=== PATIENT | male | born 1960 | race Hispanic/Latino ===

== ENCOUNTER 2021-08-04 14:34 | Inpatient (IN) | payer MEDICARE ==
[2021-08-04] VITALS (8 sets, daily range): BP systolic 152–181; BP diastolic 93–101
[~2021-08-04] VITALS: Ht 170.2 cm; Wt 86.2 kg
[~2021-08-04 14:34] MED LIST: ALBUTEROL0.63 MG/3 INH; BUMETANIDE1 MG PO; CLONIDINE HCL0.1 MG PO; ETOMIDATE 2 MG/ML 10 ML INJ IV ONE; HYDROCODON-ACE1 EAC9 PO; POTASSIUM CHLO10 ME1 PO
[2021-08-04] MEDS ORDERED: NITROGLYCERIN/D5W 200 MCG/ML 250 ML ONE (14:53)
[2021-08-04 15:02] LABS: BASOPHILS % 0.3 % (0.0-1.0); EOSINOPHILS % 0.2 % (0.0-6.0); HEMATOCRIT 28.8 % (38.2-49.6); HEMOGLOBIN 7.9 g/dL (14.0-18.0); LYMPHOCYTES # (AUTO) 1.4 (1.0-3.2); LYMPHOCYTES % 10.4 % (18.0-39.1); MEAN CORPUSCULAR HEMOGLOBIN 27.1 pg (28-32); MEAN CORPUSCULAR HGB CONC 27.4 g/dL (31-35); MEAN CORPUSCULAR VOLUME 98.6 fL (81-99); MONOCYTES # (AUTO) 0.6 (0.2-0.8); MONOCYTES % 4.5 % (4.4-11.3); NEUTROPHILS # (AUTO) 10.9 (2.1-6.9); NEUTROPHILS % 83.8 % (38.7-80.0); PLATELET COUNT 496 x10e3/uL (140-360); RED BLOOD COUNT 2.92 x10e6/uL (4.3-5.7); RED CELL DISTRIBUTION WIDTH 15.4 % (11.7-14.4)
[2021-08-04 15:16] LABS: ALBUMIN 1.9 g/dL (3.5-5.0); ALBUMIN/GLOBULIN RATIO 0.6 (0.8-2.0); ANION GAP 21.8 mmol/L (8-16); CREATININE, SERUM 8.57 mg/dL (0.72-1.25); POTASSIUM 5.8 mmol/L (3.5-5.1)
[2021-08-04] MEDS ORDERED: ALBUTEROL SULF 0.083% NEB SOLN 3 ML NEB NEB STA (15:20)
[2021-08-04 15:21] LABS: CALCIUM 6.6 mg/dL (8.4-10.2); CREATINE KINASE MB 58.1 ng/mL (0-5.0)
[2021-08-04] MEDS ORDERED: FUROSEMIDE INJ 10 MG/ML 4 ML VIAL IV ONE (15:30)
[2021-08-04 15:31] LABS: ABG PCO2 89 mmHg (35-45); ABG PH 6.98 (7.35-7.45)
[2021-08-04 15:31] LABS: MAGNESIUM 2.4 MG/DL (1.3-2.1)
[2021-08-04 15:32] LABS: ABG HCO3 21 mmol/L (22-26); ABG PO2 460 mmHg (80-105); ABG TCO2 24
[2021-08-04 15:37] LABS: INR 0.98; PROTHROMBIN TIME 13.7 seconds (11.9-14.5)
[2021-08-04 15:38] LABS: PARTIAL THROMBOPLASTIN TIME 24.5 seconds (23.8-35.5)
[2021-08-04] MEDS: PROPOFOL IV EMULSION 10MG/ML 100 ML IV SCH ×2 (15:40→21:48)
[2021-08-04] MEDS ORDERED: ROCURONIUM BROMIDE 2 ML IV ONE (15:44)
[2021-08-04] MEDS ORDERED: PROPOFOL IV EMULSION 50 ML IV ONE ×2 (15:49→18:40)
[2021-08-04] MEDS ORDERED: CALCIUM GLUCONATE 10% INJ 13.95 MEQ in SODIUM CHLORIDE 0.9% 100 ML 100 ML IV ONE (16:00)
[2021-08-04] MEDS ORDERED: ETOMIDATE 2 MG/ML 10 ML INJ IV STA (16:06)
[2021-08-04 16:08] LABS: ABG PH 6.99 (7.35-7.45)
[2021-08-04 16:09] LABS: ABG HCO3 20 mmol/L (22-26); ABG PCO2 83 mmHg (35-45); ABG PO2 105 mmHg (80-105); ABG TCO2 23
[2021-08-04] MEDS ORDERED: NITROGLYCERIN/D5W 200 MCG/ML 250 ML IV SCH (16:15)
[2021-08-04] MEDS ORDERED: PROPOFOL IV EMULSION 10MG/ML 100 ML IV SCH (16:15)
[2021-08-04] MEDS ORDERED: ROCURONIUM BROMIDE 10 MG/ML 5ML VIAL IV ONE (16:15)
[2021-08-04] MEDS ORDERED: NICARDIPINE 20MG/200ML PREMIX 200 ML IV SCH (16:45)
[2021-08-04] MEDS ORDERED: LABETALOL HCL 5 MG/ML 20ML VIAL IV PRN (16:45)
[2021-08-04 17:08] LABS: CLARITY,URINE SL CLOUDY (CLEAR); COLOR,URINE YELLOW (YELLOW); LEUKOCYTE ESTERASE ,URINE NEGATIVE (NEGATIVE); NITRITE,URINE NEGATIVE (NEGATIVE)
[2021-08-04 17:09] LABS: KETONES,URINE NEGATIVE (NEGATIVE); PROTEIN,URINE DIPSTICK >=300 (NEGATIVE); URINE UROBILINOGEN 0.2 mg/dL (0.2 - 1)
[2021-08-04 17:15] LABS: MUCUS,URINE FEW (RARE)
[2021-08-04] MEDS ORDERED: SODIUM CHLORIDE 0.9% 1000ML 1,000 ML ONE (17:21)
[2021-08-04] MEDS ORDERED: SODIUM CHLORIDE 0.9% 1000ML 2,000 ML IV PRN (17:45)
[2021-08-04] MEDS ORDERED: HEPARIN SOD (PORCINE) 1000 UNIT/ML SDV IV PRN (17:45)
[2021-08-04] MEDS ORDERED: MANNITOL 25% 12.5GM/50 ML VIAL IV PRN (17:45)
[2021-08-04 17:57] LABS: ABG HCO3 18 mmol/L (22-26); ABG PCO2 45 mmHg (35-45); ABG PO2 283 mmHg (80-105); ABG TCO2 19
[2021-08-04] MEDS ORDERED: SODIUM BICARBONATE 8.4% INJ 50 ML SYR IV STA (17:59)
[2021-08-04] MEDS ORDERED: SODIUM BICARBONATE 8.4% SYRING 50 ML ONE (18:17)
[2021-08-04] MEDS: NICARDIPINE 20MG/200ML PREMIX 200 ML IV PRN (22:53)
[2021-08-04] MEDS: ACETAMINOPHEN 325 MG TAB PO PRN (22:54)
[2021-08-05] VITALS (13 sets, daily range): BP systolic 136–159; BP diastolic 72–80
[2021-08-05 00:22] LABS: ABG HCO3 22 mmol/L (22-26); ABG PCO2 38 mmHg (35-45); ABG PH 7.38 (7.35-7.45); ABG PO2 114 mmHg (80-105); ABG TCO2 24
[2021-08-05] MEDS: NICARDIPINE 20MG/200ML PREMIX 200 ML IV PRN ×4 (01:02→10:29)
[2021-08-05] MEDS: PROPOFOL IV EMULSION 10MG/ML 100 ML IV SCH ×6 (03:02→15:35)
[2021-08-05 04:36] LABS: BASOPHILS % 0.3 % (0.0-1.0); EOSINOPHILS # (AUTO) 0.1 (0.0-0.4); EOSINOPHILS % 0.9 % (0.0-6.0); HEMATOCRIT 26.3 % (38.2-49.6); HEMOGLOBIN 7.8 g/dL (14.0-18.0); LYMPHOCYTES # (AUTO) 1.6 (1.0-3.2); LYMPHOCYTES % 13.5 % (18.0-39.1); MEAN CORPUSCULAR HEMOGLOBIN 27.4 pg (28-32); MEAN CORPUSCULAR HGB CONC 29.7 g/dL (31-35); MONOCYTES % 7.9 % (4.4-11.3); NEUTROPHILS # (AUTO) 9.2 (2.1-6.9); NEUTROPHILS % 77.1 % (38.7-80.0); PLATELET COUNT 360 x10e3/uL (140-360); RED BLOOD COUNT 2.85 x10e6/uL (4.3-5.7); RED CELL DISTRIBUTION WIDTH 15.1 % (11.7-14.4)
[2021-08-05 04:45] LABS: ANION GAP 20.9 mmol/L (8-16); CALCIUM 7.5 mg/dL (8.4-10.2); CREATININE, SERUM 6.9 mg/dL (0.72-1.25)
[2021-08-05 04:54] LABS: POTASSIUM 3.9 mmol/L (3.5-5.1)
[2021-08-05 04:55] LABS: MEAN CORPUSCULAR VOLUME 92.3 fL (81-99)
[2021-08-05 06:40] LABS: CREATINE KINASE MB 31.2 ng/mL (0-5.0)
[2021-08-05] MEDS ORDERED: PROPOFOL IV EMULSION 100 ML IV ONE ×2 (13:34→16:18)
[2021-08-05] MEDS: ASPIRIN 81 MG CHEW TAB PO SCH ×2 (14:15→17:37)
[2021-08-05] MEDS: CARVEDILOL 12.5 MG TAB PO SCH ×3 (14:59→17:38)
[2021-08-05] MEDS: HYDRALAZINE HCL 25 MG TAB PO SCH ×2 (15:00→21:00)
[2021-08-05] MEDS ORDERED: PROPOFOL IV EMULSION 100 ML IV SCH (16:15)
[2021-08-05 19:01] LABS: ABG HCO3 24 mmol/L (22-26); ABG PCO2 37 mmHg (35-45); ABG PH 7.42 (7.35-7.45); ABG PO2 88 mmHg (80-105); ABG TCO2 25
[2021-08-05 21:02] LABS: CREATINE KINASE MB 19.9 ng/mL (0-5.0)
[2021-08-05] MEDS ORDERED: HYDRALAZINE HCL 20 MG/ML VIAL IV PRN (21:45)
[2021-08-05] MEDS: HYDRALAZINE HCL 20 MG/ML VIAL IV PRN (22:27)
[2021-08-06] VITALS (10 sets, daily range): BP systolic 116–172; BP diastolic 67–89
[2021-08-06] MEDS ORDERED: CETIRIZINE HCL10 MG PO (00:03)
[2021-08-06] MEDS ORDERED: VENTOLIN HFA18 GM INH (00:03)
[2021-08-06] MEDS ORDERED: FLOMAX0.4 MG PO (00:03)
[2021-08-06] MEDS: ACETAMINOPHEN 325 MG TAB PO PRN ×2 (03:06→19:41)
[2021-08-06 07:17] LABS: BASOPHILS # (AUTO) 0.1 (0.0-0.1); BASOPHILS % 0.4 % (0.0-1.0); EOSINOPHILS % 0.2 % (0.0-6.0); HEMOGLOBIN 7.3 g/dL (14.0-18.0); LYMPHOCYTES # (AUTO) 0.6 (1.0-3.2); LYMPHOCYTES % 3.7 % (18.0-39.1); MEAN CORPUSCULAR HEMOGLOBIN 27.8 pg (28-32); MEAN CORPUSCULAR HGB CONC 30.4 g/dL (31-35); MEAN CORPUSCULAR VOLUME 91.3 fL (81-99); MONOCYTES # (AUTO) 1.1 (0.2-0.8); MONOCYTES % 6.9 % (4.4-11.3); NEUTROPHILS # (AUTO) 14.5 (2.1-6.9); NEUTROPHILS % 88.3 % (38.7-80.0); PLATELET COUNT 304 x10e3/uL (140-360); RED BLOOD COUNT 2.63 x10e6/uL (4.3-5.7); RED CELL DISTRIBUTION WIDTH 14.8 % (11.7-14.4)
[2021-08-06 07:31] LABS: CHOL/HDL RATIO 4.5 (3.9-4.7)
[2021-08-06 07:36] LABS: ALBUMIN 1.6 g/dL (3.5-5.0); ALBUMIN/GLOBULIN RATIO 0.5 (0.8-2.0); CREATININE, SERUM 5.69 mg/dL (0.72-1.25)
[2021-08-06 07:40] LABS: CALCIUM 6.8 mg/dL (8.4-10.2)
[2021-08-06] MEDS: ALBUTEROL SULF 0.083% NEB SOLN 3 ML NEB NEB PRN ×3 (08:29→18:45)
[2021-08-06] MEDS: ASPIRIN 81 MG CHEW TAB PO SCH (09:35)
[2021-08-06] MEDS: HYDRALAZINE HCL 25 MG TAB PO SCH ×3 (09:35→20:29)
[2021-08-06] MEDS: ATORVASTATIN 20 MG TAB PO SCH (09:36)
[2021-08-06] MEDS: CARVEDILOL 12.5 MG TAB PO SCH ×2 (09:59→16:22)
[2021-08-06] MEDS ORDERED: CALCIUM GLUCONATE 10% INJ 9.3 MEQ in SODIUM CHLORIDE 0.9% 100 ML 100 ML IV ONE (12:00)
[2021-08-06] MEDS: ALBUTEROL SULFATE HFA 8GM INHALATION AEROSOL INH PRN ×3 (12:10→16:00)
[2021-08-06] MEDS: LORAZEPAM INJ 2 MG/ML VIAL IV PRN (14:10)
[2021-08-06] MEDS: SODIUM FERRIC GLUCONATE COMPLX 125 MG in SODIUM CHLORIDE 0.9% 100 ML 100 ML IV SCH (14:30)
[2021-08-06] MEDS: GUAIFENESIN/CODEINE 5 ML LIQD PO PRN (20:29)
[2021-08-06] MEDS: HYDRALAZINE HCL 20 MG/ML VIAL IV PRN (23:13)
[2021-08-06] MEDS: MAGNESIUM HYDROXIDE 30 ML UDC PO PRN (23:59)
[2021-08-07 00:01] VITALS: BP 135/78
[2021-08-07] MEDS: ALBUTEROL SULFATE HFA 8GM INHALATION AEROSOL INH PRN (00:30)
[2021-08-07] MEDS: ALBUTEROL SULF 0.083% NEB SOLN 3 ML NEB NEB PRN ×5 (03:10→22:30)
[2021-08-07 04:06] VITALS: BP 154/100
[2021-08-07] MEDS: HYDRALAZINE HCL 20 MG/ML VIAL IV PRN (05:13)
[2021-08-07 06:00] LABS: BASOPHILS # (AUTO) 0.1 (0.0-0.1); BASOPHILS % 0.3 % (0.0-1.0); EOSINOPHILS # (AUTO) 0.1 (0.0-0.4); EOSINOPHILS % 0.3 % (0.0-6.0); HEMATOCRIT 24.4 % (38.2-49.6); HEMOGLOBIN 7.4 g/dL (14.0-18.0); LYMPHOCYTES # (AUTO) 0.8 (1.0-3.2); LYMPHOCYTES % 5.3 % (18.0-39.1); MEAN CORPUSCULAR HEMOGLOBIN 27.6 pg (28-32); MEAN CORPUSCULAR HGB CONC 30.3 g/dL (31-35); MONOCYTES # (AUTO) 1.3 (0.2-0.8); MONOCYTES % 8.6 % (4.4-11.3); NEUTROPHILS # (AUTO) 12.9 (2.1-6.9); NEUTROPHILS % 84.9 % (38.7-80.0); PLATELET COUNT 312 x10e3/uL (140-360); RED BLOOD COUNT 2.68 x10e6/uL (4.3-5.7); RED CELL DISTRIBUTION WIDTH 14.6 % (11.7-14.4)
[2021-08-07 06:43] LABS: ALBUMIN 1.5 g/dL (3.5-5.0); ALBUMIN/GLOBULIN RATIO 0.5 (0.8-2.0); ANION GAP 18.2 mmol/L (8-16); CALCIUM 7.3 mg/dL (8.4-10.2); CREATININE, SERUM 6.24 mg/dL (0.72-1.25); POTASSIUM 4.2 mmol/L (3.5-5.1)
[2021-08-07 07:00] VITALS: BP 118/70
[2021-08-07] MEDS: HYDRALAZINE HCL 25 MG TAB PO SCH ×3 (07:33→21:09)
[2021-08-07 07:44] VITALS: BP 118/70
[2021-08-07] MEDS ORDERED: VERAPAMIL HCL 2.5 MG/ML 2 ML VIAL ONE (08:07)
[2021-08-07] MEDS ORDERED: HEPARIN SOD (PORCINE) 1000 UNIT/ML 30ML ONE (08:07)
[2021-08-07] MEDS ORDERED: SODIUM CHLORIDE 0.9% 1000ML 1,000 ML ONE (08:08)
[2021-08-07] MEDS ORDERED: HEPARIN SOD/SOD CHLORIDE 2,000 ML ONE (08:08)
[2021-08-07] MEDS ORDERED: LIDOCAINE HCL 2% LOCAL 20 ML VIAL ONE (08:08)
[2021-08-07] MEDS ORDERED: FENTANYL CITRATE/PF 100MCG/2 ML INJ ONE (08:08)
[2021-08-07] MEDS ORDERED: MIDAZOLAM HCL 2 MG/2 ML VIAL ONE (08:08)
[2021-08-07] MEDS ORDERED: NITROGLYCERIN/D5W 200 MCG/ML 250 ML ONE (08:08)
[2021-08-07] MEDS ORDERED: IOPAMIDOL 370 MG/ML 200 ML INFUS..BTL INJ ONE (08:08)
[2021-08-07] MEDS ORDERED: CLOPIDOGREL BISULFATE 75 MG TAB ONE (08:50)
[2021-08-07] MEDS ORDERED: ASPIRIN 325 MG TAB ONE (08:51)
[2021-08-07] MEDS: ATORVASTATIN 20 MG TAB PO SCH (09:00)
[2021-08-07] MEDS: CARVEDILOL 12.5 MG TAB PO SCH ×2 (09:00→17:46)
[2021-08-07] MEDS: SODIUM FERRIC GLUCONATE COMPLX 125 MG in SODIUM CHLORIDE 0.9% 100 ML 100 ML IV SCH (09:43)
[2021-08-07] MEDS ORDERED: ASPIRIN 81 MG CHEW TAB PO SCH (10:00)
[2021-08-07] MEDS: LORAZEPAM INJ 2 MG/ML VIAL IV PRN ×3 (10:00→16:03)
[2021-08-07] MEDS ORDERED: ALBUMIN 25% 12.5GM 0.25 GM/ML BTL IV PRN (11:00)
[2021-08-07] MEDS ORDERED: SODIUM CHLORIDE 0.9% 250ML 500 ML IV PRN (11:00)
[2021-08-07] MEDS ORDERED: HEPARIN SOD (PORCINE) 1000 UNIT/ML SDV IV PRN (11:00)
[2021-08-07 12:00] VITALS: BP 140/77
[2021-08-07] MEDS: GUAIFENESIN/CODEINE 5 ML LIQD PO PRN (15:41)
[2021-08-07 21:00] VITALS: BP 112/56
[2021-08-07] MEDS ORDERED: DEXTROSE 5%/0.45% SOD CHL 1,000 ML IV SCH (22:00)
[2021-08-08] VITALS (8 sets, daily range): BP systolic 135–159; BP diastolic 64–86
[2021-08-08 06:48] LABS: BASOPHILS % 0.2 % (0.0-1.0); EOSINOPHILS # (AUTO) 0.1 (0.0-0.4); EOSINOPHILS % 0.4 % (0.0-6.0); HEMATOCRIT 27.8 % (38.2-49.6); HEMOGLOBIN 8.2 g/dL (14.0-18.0); LYMPHOCYTES # (AUTO) 0.8 (1.0-3.2); LYMPHOCYTES % 6.5 % (18.0-39.1); MEAN CORPUSCULAR HEMOGLOBIN 27.8 pg (28-32); MEAN CORPUSCULAR HGB CONC 29.5 g/dL (31-35); MEAN CORPUSCULAR VOLUME 94.2 fL (81-99); MONOCYTES # (AUTO) 1.2 (0.2-0.8); MONOCYTES % 9.9 % (4.4-11.3); NEUTROPHILS # (AUTO) 10.2 (2.1-6.9); NEUTROPHILS % 82.6 % (38.7-80.0); PLATELET COUNT 369 x10e3/uL (140-360); RED BLOOD COUNT 2.95 x10e6/uL (4.3-5.7); RED CELL DISTRIBUTION WIDTH 14.6 % (11.7-14.4)
[2021-08-08 07:25] LABS: ALBUMIN 1.5 g/dL (3.5-5.0); ALBUMIN/GLOBULIN RATIO 0.5 (0.8-2.0); ANION GAP 19.7 mmol/L (8-16); CREATININE, SERUM 4.93 mg/dL (0.72-1.25); POTASSIUM 4.7 mmol/L (3.5-5.1)
[2021-08-08 07:41] LABS: CALCIUM 7.5 mg/dL (8.4-10.2)
[2021-08-08] MEDS: ALBUTEROL SULF 0.083% NEB SOLN 3 ML NEB NEB PRN ×5 (08:21→23:30)
[2021-08-08] MEDS: ASPIRIN 81 MG CHEW TAB PO SCH (09:43)
[2021-08-08] MEDS: HYDRALAZINE HCL 25 MG TAB PO SCH ×3 (09:45→21:38)
[2021-08-08] MEDS: CARVEDILOL 12.5 MG TAB PO SCH ×2 (09:45→16:20)
[2021-08-08] MEDS: CLOPIDOGREL BISULFATE 75 MG TAB PO SCH (09:45)
[2021-08-08] MEDS: ATORVASTATIN 20 MG TAB PO SCH (09:45)
[2021-08-08] MEDS: SODIUM FERRIC GLUCONATE COMPLX 125 MG in SODIUM CHLORIDE 0.9% 100 ML 100 ML IV SCH (13:05)
[2021-08-08] MEDS: ACETAMINOPHEN 325 MG TAB PO PRN (14:29)
[2021-08-08] MEDS: HYDROCODONE/APAP 5MG-325MG TAB PO PRN (15:43)
[2021-08-08] MEDS: GUAIFENESIN/CODEINE 5 ML LIQD PO PRN ×2 (18:00→21:40)
[2021-08-09] VITALS (9 sets, daily range): BP systolic 114–171; BP diastolic 62–96
[2021-08-09] MEDS: ALBUTEROL SULF 0.083% NEB SOLN 3 ML NEB NEB PRN ×2 (03:00→08:12)
[2021-08-09 06:26] LABS: ANION GAP 17.1 mmol/L (8-16); CREATININE, SERUM 6.07 mg/dL (0.72-1.25); POTASSIUM 4.1 mmol/L (3.5-5.1)
[2021-08-09] MEDS: MONTELUKAST SODIUM 10 MG TAB PO SCH (08:00)
[2021-08-09] MEDS: GUAIFENESIN/CODEINE 5 ML LIQD PO PRN ×2 (08:26→11:15)
[2021-08-09] MEDS: ATORVASTATIN 20 MG TAB PO SCH (09:00)
[2021-08-09] MEDS: CLOPIDOGREL BISULFATE 75 MG TAB PO SCH (09:00)
[2021-08-09] MEDS: ASPIRIN 81 MG CHEW TAB PO SCH (09:00)
[2021-08-09] MEDS ORDERED: HEPARIN SOD (PORCINE) 1000 UNIT/ML SDV IV PRN (09:15)
[2021-08-09] MEDS: SODIUM FERRIC GLUCONATE COMPLX 125 MG in SODIUM CHLORIDE 0.9% 100 ML 100 ML IV SCH (11:00)
[2021-08-09] MEDS: ALBUTEROL SULF 0.083% NEB SOLN 3 ML NEB NEB SCH ×4 (11:54→23:05)
[2021-08-09] MEDS: HYDRALAZINE HCL 25 MG TAB PO SCH ×3 (13:22→21:02)
[2021-08-09] MEDS: CARVEDILOL 12.5 MG TAB PO SCH ×2 (13:22→17:11)
[2021-08-09] MEDS ORDERED: SODIUM CHLORIDE 0.9% 250ML 250 ML ONE (14:01)
[2021-08-09] MEDS ORDERED: LIDOCAINE HCL 1% LOCAL INJ 20 ML VIAL ONE (14:01)
[2021-08-09] MEDS ORDERED: FENTANYL CITRATE/PF 100MCG/2 ML INJ ONE (14:53)
[2021-08-09] MEDS ORDERED: MIDAZOLAM HCL 2 MG/2 ML VIAL ONE (14:53)
[2021-08-09] MEDS ORDERED: SODIUM CHLORIDE 0.9% 50ML 50 ML ONE (14:54)
[2021-08-09] MEDS ORDERED: HEPARIN SOD (PORCINE) 1000 UNIT/ML SDV ONE (14:56)
[2021-08-09] MEDS ORDERED: BENZONATATE 100 MG CAP PO PRN (17:15)
[2021-08-09] MEDS: HYDROCODONE/APAP 5MG-325MG TAB PO PRN (21:05)
[2021-08-10] VITALS (8 sets, daily range): BP systolic 150–168; BP diastolic 81–94
[2021-08-10] MEDS: ALBUTEROL SULF 0.083% NEB SOLN 3 ML NEB NEB SCH ×6 (03:00→22:25)
[2021-08-10] MEDS: HYDROCODONE/APAP 5MG-325MG TAB PO PRN ×4 (03:01→22:22)
[2021-08-10] MEDS: GUAIFENESIN/CODEINE 5 ML LIQD PO PRN ×4 (05:26→22:24)
[2021-08-10 07:16] LABS: BASOPHILS % 0.2 % (0.0-1.0); EOSINOPHILS # (AUTO) 0.1 (0.0-0.4); EOSINOPHILS % 1.2 % (0.0-6.0); HEMATOCRIT 21.8 % (38.2-49.6); LYMPHOCYTES # (AUTO) 0.9 (1.0-3.2); LYMPHOCYTES % 7.9 % (18.0-39.1); MEAN CORPUSCULAR HEMOGLOBIN 27.9 pg (28-32); MEAN CORPUSCULAR HGB CONC 29.8 g/dL (31-35); MEAN CORPUSCULAR VOLUME 93.6 fL (81-99); MONOCYTES # (AUTO) 1.3 (0.2-0.8); MONOCYTES % 11.3 % (4.4-11.3); NEUTROPHILS # (AUTO) 8.7 (2.1-6.9); NEUTROPHILS % 79.1 % (38.7-80.0); PLATELET COUNT 302 x10e3/uL (140-360); RED BLOOD COUNT 2.33 x10e6/uL (4.3-5.7); RED CELL DISTRIBUTION WIDTH 13.8 % (11.7-14.4)
[2021-08-10 07:33] LABS: ALBUMIN 1.4 g/dL (3.5-5.0); ALBUMIN/GLOBULIN RATIO 0.5 (0.8-2.0); ANION GAP 13.8 mmol/L (8-16); CREATININE, SERUM 4.87 mg/dL (0.72-1.25); POTASSIUM 3.8 mmol/L (3.5-5.1)
[2021-08-10 07:40] LABS: HEMOGLOBIN 6.5 g/dL (14.0-18.0)
[2021-08-10 07:47] LABS: CALCIUM 6.7 mg/dL (8.4-10.2)
[2021-08-10] MEDS: CLOPIDOGREL BISULFATE 75 MG TAB PO SCH (08:57)
[2021-08-10] MEDS: ASPIRIN 81 MG CHEW TAB PO SCH (08:57)
[2021-08-10] MEDS: ATORVASTATIN 20 MG TAB PO SCH (08:57)
[2021-08-10] MEDS: HYDRALAZINE HCL 25 MG TAB PO SCH ×3 (08:58→20:37)
[2021-08-10] MEDS: MONTELUKAST SODIUM 10 MG TAB PO SCH (08:58)
[2021-08-10] MEDS: CARVEDILOL 12.5 MG TAB PO SCH ×2 (08:58→15:49)
[2021-08-10] MEDS ORDERED: SODIUM CHLORIDE 0.9% 250ML 250 ML IV ONE (09:15)
[2021-08-10] MEDS: SODIUM FERRIC GLUCONATE COMPLX 125 MG in SODIUM CHLORIDE 0.9% 100 ML 100 ML IV SCH (12:27)
[2021-08-10] MEDS ORDERED: SODIUM CHLORIDE 0.9% 250ML 250 ML ONE (12:33)
[2021-08-11] MEDS: ALBUTEROL SULF 0.083% NEB SOLN 3 ML NEB NEB SCH ×6 (02:38→23:20)
[2021-08-11] MEDS: GUAIFENESIN/CODEINE 5 ML LIQD PO PRN ×4 (02:57→23:41)
[2021-08-11 04:54] VITALS: BP 137/68
[2021-08-11] MEDS: HYDROCODONE/APAP 5MG-325MG TAB PO PRN ×3 (05:39→18:43)
[2021-08-11 06:40] LABS: BASOPHILS % 0.4 % (0.0-1.0); EOSINOPHILS # (AUTO) 0.2 (0.0-0.4); EOSINOPHILS % 1.5 % (0.0-6.0); HEMATOCRIT 26.6 % (38.2-49.6); LYMPHOCYTES # (AUTO) 0.6 (1.0-3.2); LYMPHOCYTES % 5.7 % (18.0-39.1); MEAN CORPUSCULAR HEMOGLOBIN 28.6 pg (28-32); MEAN CORPUSCULAR HGB CONC 30.1 g/dL (31-35); MONOCYTES # (AUTO) 0.8 (0.2-0.8); MONOCYTES % 7.6 % (4.4-11.3); NEUTROPHILS # (AUTO) 9.2 (2.1-6.9); NEUTROPHILS % 84.3 % (38.7-80.0); PLATELET COUNT 290 x10e3/uL (140-360); RED CELL DISTRIBUTION WIDTH 13.4 % (11.7-14.4)
[2021-08-11 06:58] LABS: ALBUMIN 1.5 g/dL (3.5-5.0); ALBUMIN/GLOBULIN RATIO 0.5 (0.8-2.0); ANION GAP 16.9 mmol/L (8-16); CREATININE, SERUM 5.94 mg/dL (0.72-1.25); POTASSIUM 3.9 mmol/L (3.5-5.1)
[2021-08-11 07:04] LABS: CALCIUM 6.8 mg/dL (8.4-10.2)
[2021-08-11 07:56] VITALS: BP 156/86
[2021-08-11 08:45] VITALS: BP 156/86
[2021-08-11] MEDS ORDERED: HEPARIN SOD (PORCINE) 1000 UNIT/ML SDV IV PRN (09:00)
[2021-08-11] MEDS: MONTELUKAST SODIUM 10 MG TAB PO SCH (11:33)
[2021-08-11] MEDS: ASPIRIN 81 MG CHEW TAB PO SCH (11:34)
[2021-08-11] MEDS: ATORVASTATIN 20 MG TAB PO SCH (11:34)
[2021-08-11] MEDS: HYDRALAZINE HCL 25 MG TAB PO SCH ×3 (11:34→20:20)
[2021-08-11] MEDS: CARVEDILOL 12.5 MG TAB PO SCH ×2 (11:34→16:55)
[2021-08-11] MEDS: CLOPIDOGREL BISULFATE 75 MG TAB PO SCH (11:35)
[2021-08-11 11:37] VITALS: BP 168/96
[2021-08-11] MEDS: SODIUM FERRIC GLUCONATE COMPLX 125 MG in SODIUM CHLORIDE 0.9% 100 ML 100 ML IV SCH (12:52)
[2021-08-11] MEDS: SIMETHICONE 80 MG CHEW PO PRN ×3 (13:03→23:42)
[2021-08-11] MEDS ORDERED: TRELEGY ELLIPT1 EAC1 INH (14:27)
[2021-08-11] MEDS ORDERED: SPIRIVA18 MCG INH (14:27)
[2021-08-11] MEDS ORDERED: COMBIVENT RESPIM4 GM IH (14:27)
[2021-08-11] MEDS ORDERED: IPRATROPIUM BROMIDE 0.02% 2.5 ML NEB NEB PRN (14:45)
[2021-08-11 15:40] VITALS: BP 141/72
[2021-08-11] MEDS: CALCIUM ACETATE 667 MG GELCAP PO SCH (16:53)
[2021-08-11] MEDS: EPOETIN ALFA-EPBX 10,000 UNIT/ML VIAL SC SCH (16:54)
[2021-08-11] MEDS ORDERED: CALCIUM CHLORIDE 13.6 MEQ in SODIUM CHLORIDE 0.9% 100 ML 100 ML IV ONE (17:00)
[2021-08-11] MEDS ORDERED: METHYLPREDNISOLONE SOD SUCC 125 MG/2ML VIAL IV ONE (18:45)
[2021-08-11 20:00] VITALS: BP_SYST 132; BP_SYST 141; BP_DIAS 70; BP_DIAS 72
[2021-08-12] VITALS (9 sets, daily range): BP systolic 133–163; BP diastolic 74–90
[2021-08-12] MEDS: HYDROCODONE/APAP 5MG-325MG TAB PO PRN ×4 (02:53→17:10)
[2021-08-12] MEDS: ALBUTEROL SULF 0.083% NEB SOLN 3 ML NEB NEB SCH ×6 (03:00→23:10)
[2021-08-12] MEDS: SIMETHICONE 80 MG CHEW PO PRN ×3 (04:50→17:10)
[2021-08-12] MEDS: GUAIFENESIN/CODEINE 5 ML LIQD PO PRN ×2 (07:33→15:14)
[2021-08-12] MEDS: CALCIUM ACETATE 667 MG GELCAP PO SCH ×3 (08:00→17:11)
[2021-08-12] MEDS: HYDRALAZINE HCL 25 MG TAB PO SCH ×3 (09:12→21:00)
[2021-08-12] MEDS: ASPIRIN 81 MG CHEW TAB PO SCH (09:12)
[2021-08-12] MEDS: CARVEDILOL 12.5 MG TAB PO SCH ×2 (09:12→17:11)
[2021-08-12] MEDS: MONTELUKAST SODIUM 10 MG TAB PO SCH (09:13)
[2021-08-12] MEDS: CLOPIDOGREL BISULFATE 75 MG TAB PO SCH (09:13)
[2021-08-12] MEDS: ATORVASTATIN 20 MG TAB PO SCH (09:13)
[2021-08-12] MEDS: SODIUM FERRIC GLUCONATE COMPLX 125 MG in SODIUM CHLORIDE 0.9% 100 ML 100 ML IV SCH (11:50)
[2021-08-12] MEDS: GUAIFENESIN 600 MG TAB PO PRN (17:10)
[2021-08-12] MEDS: PANTOPRAZOLE SOD 40 MG TABEC PO SCH (17:11)
[2021-08-13] VITALS (8 sets, daily range): BP systolic 134–156; BP diastolic 71–89
[2021-08-13] MEDS: ALBUTEROL SULF 0.083% NEB SOLN 3 ML NEB NEB SCH ×6 (03:15→22:34)
[2021-08-13 06:32] LABS: BASOPHILS % 0.2 % (0.0-1.0); EOSINOPHILS # (AUTO) 0.1 (0.0-0.4); EOSINOPHILS % 0.5 % (0.0-6.0); HEMATOCRIT 23.6 % (38.2-49.6); HEMOGLOBIN 7.3 g/dL (14.0-18.0); LYMPHOCYTES % 9.3 % (18.0-39.1); MEAN CORPUSCULAR HEMOGLOBIN 28.9 pg (28-32); MEAN CORPUSCULAR HGB CONC 30.9 g/dL (31-35); MEAN CORPUSCULAR VOLUME 93.3 fL (81-99); MONOCYTES # (AUTO) 1.6 (0.2-0.8); MONOCYTES % 14.6 % (4.4-11.3); NEUTROPHILS # (AUTO) 7.9 (2.1-6.9); NEUTROPHILS % 74.2 % (38.7-80.0); PLATELET COUNT 306 x10e3/uL (140-360); RED BLOOD COUNT 2.53 x10e6/uL (4.3-5.7); RED CELL DISTRIBUTION WIDTH 13.4 % (11.7-14.4)
[2021-08-13 06:57] LABS: ALBUMIN 1.6 g/dL (3.5-5.0); ALBUMIN/GLOBULIN RATIO 0.6 (0.8-2.0); ANION GAP 14.8 mmol/L (8-16); CALCIUM 7.1 mg/dL (8.4-10.2); CREATININE, SERUM 5.57 mg/dL (0.72-1.25); POTASSIUM 3.8 mmol/L (3.5-5.1)
[2021-08-13] MEDS: CALCIUM ACETATE 667 MG GELCAP PO SCH ×3 (08:18→16:39)
[2021-08-13] MEDS: ATORVASTATIN 20 MG TAB PO SCH (08:19)
[2021-08-13] MEDS: HYDRALAZINE HCL 25 MG TAB PO SCH ×3 (08:19→21:10)
[2021-08-13] MEDS: CLOPIDOGREL BISULFATE 75 MG TAB PO SCH (08:19)
[2021-08-13] MEDS: CARVEDILOL 12.5 MG TAB PO SCH ×2 (08:19→16:39)
[2021-08-13] MEDS: MONTELUKAST SODIUM 10 MG TAB PO SCH (08:19)
[2021-08-13] MEDS: ASPIRIN 81 MG CHEW TAB PO SCH (08:19)
[2021-08-13] MEDS: HYDROCODONE/APAP 5MG-325MG TAB PO PRN ×2 (08:45→17:10)
[2021-08-13] MEDS: GUAIFENESIN 600 MG TAB PO PRN (08:45)
[2021-08-13] MEDS: SIMETHICONE 80 MG CHEW PO PRN ×2 (08:45→16:39)
[2021-08-13] MEDS: SODIUM FERRIC GLUCONATE COMPLX 125 MG in SODIUM CHLORIDE 0.9% 100 ML 100 ML IV SCH (10:59)
[2021-08-13] MEDS: GUAIFENESIN/CODEINE 5 ML LIQD PO PRN ×2 (11:47→16:50)
[2021-08-13] MEDS: PANTOPRAZOLE SOD 40 MG TABEC PO SCH (16:39)
[2021-08-13] MEDS: MAGNESIUM HYDROXIDE 30 ML UDC PO PRN (17:10)
[2021-08-13] MEDS: BUDESONIDE/FORMOTEROL 160/4.5MCG INHALER INH SCH (19:00)
[2021-08-14] VITALS (13 sets, daily range): BP systolic 127–174; BP diastolic 74–110
[2021-08-14] MEDS: GUAIFENESIN/CODEINE 5 ML LIQD PO PRN ×4 (02:47→20:58)
[2021-08-14] MEDS: ALBUTEROL SULF 0.083% NEB SOLN 3 ML NEB NEB SCH ×6 (02:58→23:11)
[2021-08-14] MEDS: HYDROCODONE/APAP 5MG-325MG TAB PO PRN ×2 (03:32→10:10)
[2021-08-14 07:14] LABS: BASOPHILS % 0.2 % (0.0-1.0); EOSINOPHILS # (AUTO) 0.2 (0.0-0.4); EOSINOPHILS % 1.8 % (0.0-6.0); HEMATOCRIT 24.1 % (38.2-49.6); HEMOGLOBIN 7.3 g/dL (14.0-18.0); LYMPHOCYTES % 8.5 % (18.0-39.1); MEAN CORPUSCULAR HEMOGLOBIN 28.9 pg (28-32); MEAN CORPUSCULAR HGB CONC 30.3 g/dL (31-35); MEAN CORPUSCULAR VOLUME 95.3 fL (81-99); MONOCYTES # (AUTO) 1.5 (0.2-0.8); MONOCYTES % 12.7 % (4.4-11.3); NEUTROPHILS # (AUTO) 8.7 (2.1-6.9); NEUTROPHILS % 74.8 % (38.7-80.0); PLATELET COUNT 356 x10e3/uL (140-360); RED BLOOD COUNT 2.53 x10e6/uL (4.3-5.7); RED CELL DISTRIBUTION WIDTH 13.6 % (11.7-14.4)
[2021-08-14 07:32] LABS: ALBUMIN 1.8 g/dL (3.5-5.0); ALBUMIN/GLOBULIN RATIO 0.6 (0.8-2.0); ANION GAP 16.4 mmol/L (8-16); CREATININE, SERUM 6.23 mg/dL (0.72-1.25); POTASSIUM 4.4 mmol/L (3.5-5.1)
[2021-08-14] MEDS: CALCIUM ACETATE 667 MG GELCAP PO SCH ×3 (08:00→17:28)
[2021-08-14 08:06] LABS: CALCIUM 6.8 mg/dL (8.4-10.2)
[2021-08-14] MEDS ORDERED: CALCIUM GLUCONATE 10% INJ 4.65 MEQ in SODIUM CHLORIDE 0.9% 50ML 50 ML IV ONE (08:30)
[2021-08-14] MEDS: ASPIRIN 81 MG CHEW TAB PO SCH (09:00)
[2021-08-14] MEDS: CLOPIDOGREL BISULFATE 75 MG TAB PO SCH (09:00)
[2021-08-14] MEDS: HYDRALAZINE HCL 25 MG TAB PO SCH ×3 (09:00→20:34)
[2021-08-14] MEDS: MONTELUKAST SODIUM 10 MG TAB PO SCH (09:00)
[2021-08-14] MEDS: ATORVASTATIN 20 MG TAB PO SCH (09:00)
[2021-08-14] MEDS: CARVEDILOL 12.5 MG TAB PO SCH ×2 (09:00→17:28)
[2021-08-14] MEDS ORDERED: CALCIUM CHLORIDE 13.6 MEQ in SODIUM CHLORIDE 0.9% 100 ML 100 ML IV ONE (09:30)
[2021-08-14] MEDS: SODIUM FERRIC GLUCONATE COMPLX 125 MG in SODIUM CHLORIDE 0.9% 100 ML 100 ML IV SCH (10:03)
[2021-08-14] MEDS: BUDESONIDE/FORMOTEROL 160/4.5MCG INHALER INH SCH ×2 (10:09→20:08)
[2021-08-14] MEDS: SIMETHICONE 80 MG CHEW PO PRN (10:10)
[2021-08-14] MEDS: MAGNESIUM HYDROXIDE 30 ML UDC PO PRN (14:53)
[2021-08-14] MEDS: EPOETIN ALFA-EPBX 10,000 UNIT/ML VIAL SC SCH (17:28)
[2021-08-14] MEDS: PANTOPRAZOLE SOD 40 MG TABEC PO SCH (17:28)
[2021-08-14] MEDS ORDERED: EPOETIN ALFA-EPBX 10,000 UNIT/ML VIAL SC SCH (18:00)
[2021-08-15] VITALS (9 sets, daily range): BP systolic 110–173; BP diastolic 67–94
[2021-08-15] MEDS: ALBUTEROL SULF 0.083% NEB SOLN 3 ML NEB NEB SCH ×6 (03:09→22:45)
[2021-08-15] MEDS: BUDESONIDE/FORMOTEROL 160/4.5MCG INHALER INH SCH ×2 (06:49→20:36)
[2021-08-15] MEDS: ACETAMINOPHEN 325 MG TAB PO PRN (08:24)
[2021-08-15] MEDS: CALCIUM ACETATE 667 MG GELCAP PO SCH ×3 (08:26→16:56)
[2021-08-15] MEDS: CARVEDILOL 12.5 MG TAB PO SCH ×2 (08:27→16:56)
[2021-08-15] MEDS: ATORVASTATIN 20 MG TAB PO SCH (08:27)
[2021-08-15] MEDS: HYDRALAZINE HCL 25 MG TAB PO SCH ×3 (08:27→20:36)
[2021-08-15] MEDS: CLOPIDOGREL BISULFATE 75 MG TAB PO SCH (08:28)
[2021-08-15] MEDS: MONTELUKAST SODIUM 10 MG TAB PO SCH (08:28)
[2021-08-15] MEDS: ASPIRIN 81 MG CHEW TAB PO SCH (08:28)
[2021-08-15] MEDS: GUAIFENESIN/CODEINE 5 ML LIQD PO PRN ×2 (08:29→13:55)
[2021-08-15] MEDS: SODIUM FERRIC GLUCONATE COMPLX 125 MG in SODIUM CHLORIDE 0.9% 100 ML 100 ML IV SCH (11:49)
[2021-08-15] MEDS ORDERED: METHYLPREDNISOLONE SOD SUCC 125 MG/2ML VIAL IV NR (13:15)
[2021-08-15] MEDS: PANTOPRAZOLE SOD 40 MG TABEC PO SCH (16:56)
[2021-08-15] MEDS: CALCIUM CARBONATE 500 MG CHEWABLE TABS PO SCH (20:36)
[2021-08-16] VITALS (7 sets, daily range): BP systolic 141–189; BP diastolic 74–101
[2021-08-16] MEDS: ALBUTEROL SULF 0.083% NEB SOLN 3 ML NEB NEB SCH ×5 (02:25→19:30)
[2021-08-16] MEDS: HYDRALAZINE HCL 20 MG/ML VIAL IV PRN (05:21)
[2021-08-16] MEDS: GUAIFENESIN/CODEINE 5 ML LIQD PO PRN (07:11)
[2021-08-16 08:01] LABS: ANION GAP 15.2 mmol/L (8-16); CREATININE, SERUM 5.72 mg/dL (0.72-1.25); POTASSIUM 4.2 mmol/L (3.5-5.1)
[2021-08-16] MEDS: BUDESONIDE/FORMOTEROL 160/4.5MCG INHALER INH SCH ×2 (08:05→19:30)
[2021-08-16 08:16] LABS: CALCIUM 6.7 mg/dL (8.4-10.2)
[2021-08-16] MEDS: HYDRALAZINE HCL 25 MG TAB PO SCH ×3 (08:55→16:56)
[2021-08-16] MEDS: CLOPIDOGREL BISULFATE 75 MG TAB PO SCH (08:56)
[2021-08-16] MEDS: CARVEDILOL 12.5 MG TAB PO SCH ×2 (08:56→16:00)
[2021-08-16] MEDS: ATORVASTATIN 20 MG TAB PO SCH (08:56)
[2021-08-16] MEDS: MONTELUKAST SODIUM 10 MG TAB PO SCH (08:57)
[2021-08-16] MEDS: ASPIRIN 81 MG CHEW TAB PO SCH (08:57)
[2021-08-16] MEDS: CALCIUM ACETATE 667 MG GELCAP PO SCH ×3 (08:57→16:00)
[2021-08-16] MEDS: CALCIUM CARBONATE 500 MG CHEWABLE TABS PO SCH ×3 (09:00→15:59)
[2021-08-16] MEDS ORDERED: CALCIUM CHLORIDE 13.6 MEQ in SODIUM CHLORIDE 0.9% 100 ML 100 ML IV ONE ×2 (09:15→10:30)
[2021-08-16] MEDS: PANTOPRAZOLE SOD 40 MG TABEC PO SCH (16:00)
[2021-08-16] MEDS: EPOETIN ALFA-EPBX 10,000 UNIT/ML VIAL SC SCH (16:25)
[2021-08-16] MEDS ORDERED: SINGULAIR10 MG PO (19:50)
[2021-08-16] MEDS ORDERED: PANTOPRAZOLE SO40 MG PO (19:52)
[2021-08-16] MEDS ORDERED: COREG12.5 MG PO (19:52)
[2021-08-16] MEDS ORDERED: PLAVIX75 MG PO (19:54)
[2021-08-16] MEDS ORDERED: LIPITOR20 MG PO (19:54)
[2021-08-16] MEDS ORDERED: ASPIRIN81 MG PO (19:54)
[2021-08-16] MEDS ORDERED: HYDRALAZINE HCL50 MG PO (19:56)
[2021-08-16] MEDS ORDERED: BUDESONIDE-FO10.2 G1 (20:01)
== END 2021-08-16 20:52 | disposition home or self-care (01) | DRG 246 ==
LOC: ER 14:56 → ERHOLD 16:04 → IMCU 08-05 20:14 → MED/SURG3 08-09 08:31
PROVIDERS: ADMIT Internal Medicine; ATTEND Internal Medicine
PROC: 05H333Z Insertion of Infusion Device into Right Innominate Vein, Percutaneous Approach (ICD-10-PCS; principal; 2021-08-04)
PROC: 5A1945Z Respiratory Ventilation, 24-96 Consecutive Hours (ICD-10-PCS; 2021-08-04)
PROC: 0BH18EZ Insertion of Endotracheal Airway into Trachea, Via Natural or Artificial Opening Endoscopic (ICD-10-PCS; 2021-08-04)
PROC: 5A1D70Z Performance of Urinary Filtration, Intermittent, Less than 6 Hours Per Day (ICD-10-PCS; 2021-08-04)
PROC: 027034Z Dilation of Coronary Artery, One Artery with Drug-eluting Intraluminal Device, Percutaneous Approach (ICD-10-PCS; 2021-08-07)
PROC: 4A023N7 Measurement of Cardiac Sampling and Pressure, Left Heart, Percutaneous Approach (ICD-10-PCS; 2021-08-07)
PROC: B2111ZZ Fluoroscopy of Multiple Coronary Arteries using Low Osmolar Contrast (ICD-10-PCS; 2021-08-07)
PROC: B2151ZZ Fluoroscopy of Left Heart using Low Osmolar Contrast (ICD-10-PCS; 2021-08-07)
PROC: 0JH63XZ Insertion of Tunneled Vascular Access Device into Chest Subcutaneous Tissue and Fascia, Percutaneous Approach (ICD-10-PCS; 2021-08-09)
PROC: 02HV33Z Insertion of Infusion Device into Superior Vena Cava, Percutaneous Approach (ICD-10-PCS; 2021-08-09)
DX: I13.2 Hypertensive heart and chronic kidney disease with heart failure and with stage 5 chronic kidney disease, or end stage renal disease (principal); J96.21 Acute and chronic respiratory failure with hypoxia; J96.02 Acute respiratory failure with hypercapnia; I21.A1 Myocardial infarction type 2; N18.6 End stage renal disease; I50.33 Acute on chronic diastolic (congestive) heart failure; J44.1 Chronic obstructive pulmonary disease with (acute) exacerbation; N17.9 Acute kidney failure, unspecified; E87.4 Mixed disorder of acid-base balance; I16.1 Hypertensive emergency; Z68.41 Body mass index [BMI] 40.0-44.9, adult; E87.5 Hyperkalemia; D64.9 Anemia, unspecified; E66.01 Morbid (severe) obesity due to excess calories; F41.9 Anxiety disorder, unspecified; I25.10 Atherosclerotic heart disease of native coronary artery without angina pectoris; E83.51 Hypocalcemia; G47.33 Obstructive sleep apnea (adult) (pediatric)
CPT/HCPCS: 31500; 36415; 36556; 36558; 36600; 51700; 71045; 74470; 76937; 77001; 80048; 80053; 80061; 81001; 82550; 82553; 82728; 82805; 82948; 83036; 83540; 83605; 83735; 83880; 84100; 84443; 84466; 84484; 85025; 85610; 85730; 86705; 86706; 86850; 86900; 86920; 87040; 87086; 87340; 90962; 92928; 93005; 93306; 93458; 94640; 94660; 94664; 94799; 99152; 99285; C1725; C1760; C1769; C1874; C1892; C9600; J0360; J0610; J1644; J1940; J2001; J2060; J2150; J2250; J2916; J2930; J3010; J7030; J7050; P9016; Q9967; U0002

== ENCOUNTER 2021-08-23 20:11 | Inpatient (IN) | payer MEDICARE ==
[~2021-08-23] VITALS: Ht 170.2 cm; Wt 86.2 kg
[~2021-08-23 20:11] MED LIST changes: +ASPIRIN81 MG PO; +BUDESONIDE-FO10.2 G1; +CETIRIZINE HCL10 MG PO; +COMBIVENT RESPIM4 GM IH; +COREG12.5 MG PO; -ETOMIDATE 2 MG/ML 10 ML INJ IV ONE; +FLOMAX0.4 MG PO; +HYDRALAZINE HCL50 MG PO; +LIPITOR20 MG PO; +PANTOPRAZOLE SO40 MG PO; +PLAVIX75 MG PO; +SINGULAIR10 MG PO; +SPIRIVA18 MCG INH; +TRELEGY ELLIPT1 EAC1 INH; +VENTOLIN HFA18 GM INH
[2021-08-23 20:33] LABS: BASOPHILS % 0.3 % (0.0-1.0); EOSINOPHILS # (AUTO) 0.1 (0.0-0.4); EOSINOPHILS % 0.6 % (0.0-6.0); LYMPHOCYTES # (AUTO) 0.8 (1.0-3.2); LYMPHOCYTES % 8.5 % (18.0-39.1); MEAN CORPUSCULAR HEMOGLOBIN 28.2 pg (28-32); MEAN CORPUSCULAR HGB CONC 28.7 g/dL (31-35); MEAN CORPUSCULAR VOLUME 98.3 fL (81-99); MONOCYTES # (AUTO) 0.7 (0.2-0.8); MONOCYTES % 8.1 % (4.4-11.3); NEUTROPHILS # (AUTO) 7.4 (2.1-6.9); NEUTROPHILS % 81.9 % (38.7-80.0); PLATELET COUNT 287 x10e3/uL (140-360); RED BLOOD COUNT 1.77 x10e6/uL (4.3-5.7)
[2021-08-23 20:36] LABS: HEMATOCRIT 17.4 % (38.2-49.6)
[2021-08-23 20:57] LABS: ALBUMIN 2.1 g/dL (3.5-5.0); ALBUMIN/GLOBULIN RATIO 0.7 (0.8-2.0); ANION GAP 13.3 mmol/L (8-16); CALCIUM 7.4 mg/dL (8.4-10.2); CREATININE, SERUM 2.27 mg/dL (0.72-1.25); POTASSIUM 3.3 mmol/L (3.5-5.1)
[2021-08-23 21:03] LABS: CREATINE KINASE MB 13.1 ng/mL (0-5.0)
[2021-08-23] MEDS ORDERED: SODIUM CHLORIDE FLUSH 10 ML SYR INJ PRN (22:00)
[2021-08-23] MEDS ORDERED: ASPIRIN 81 MG CHEW TAB PO ONE (22:00)
[2021-08-23] MEDS: CEFTRIAXONE 2 GM in SODIUM CHLORIDE 0.9% 100 ML IV SCH (22:38)
[2021-08-23] MEDS ORDERED: DEXAMETHASONE PHOS 4MG/ML 5ML MULTIDOSE VIAL IV ONE (23:00)
[2021-08-23] MEDS ORDERED: ALBUTEROL SULF 0.083% NEB SOLN 3 ML NEB NEB PRN (23:00)
[2021-08-23] MEDS ORDERED: ACETAMINOPHEN 325 MG TAB PEG PRN (23:00)
[2021-08-23] MEDS ORDERED: HYDRALAZINE HCL 20 MG/ML VIAL IV PRN (23:00)
[2021-08-23] MEDS ORDERED: MELATONIN 3 MG TAB PO PRN (23:00)
[2021-08-23] MEDS: ONDANSETRON HCL INJ 2MG/ML 2ML 2 MG/ML VIAL IV PRN (23:01)
[2021-08-24] VITALS (12 sets, daily range): BP systolic 99–140; BP diastolic 50–79
[2021-08-24] MEDS ORDERED: IPRATROPIUM BROMIDE 0.02% 2.5 ML NEB NEB SCH (01:00)
[2021-08-24] MEDS ORDERED: SODIUM CHLORIDE 0.9% 1000ML 1,000 ML ONE (01:46)
[2021-08-24] MEDS ORDERED: SODIUM CHLORIDE 0.9% 250ML 250 ML ONE (02:20)
[2021-08-24] MEDS ORDERED: HEPARIN SOD (PORCINE) 1000 UNIT/ML SDV ONE (04:10)
[2021-08-24 07:17] LABS: BASOPHILS % 0.2 % (0.0-1.0); HEMATOCRIT 26.6 % (38.2-49.6); HEMOGLOBIN 7.8 g/dL (14.0-18.0); LYMPHOCYTES # (AUTO) 0.3 (1.0-3.2); LYMPHOCYTES % 3.4 % (18.0-39.1); MEAN CORPUSCULAR HEMOGLOBIN 29.5 pg (28-32); MEAN CORPUSCULAR HGB CONC 29.3 g/dL (31-35); MEAN CORPUSCULAR VOLUME 100.8 fL (81-99); MONOCYTES # (AUTO) 0.1 (0.2-0.8); MONOCYTES % 1.2 % (4.4-11.3); NEUTROPHILS # (AUTO) 7.9 (2.1-6.9); PLATELET COUNT 272 x10e3/uL (140-360); RED BLOOD COUNT 2.64 x10e6/uL (4.3-5.7); RED CELL DISTRIBUTION WIDTH 15.4 % (11.7-14.4)
[2021-08-24 07:57] LABS: ALBUMIN 2.1 g/dL (3.5-5.0); ALBUMIN/GLOBULIN RATIO 0.7 (0.8-2.0); ANION GAP 12.7 mmol/L (8-16); CALCIUM 7.3 mg/dL (8.4-10.2); CREATININE, SERUM 1.91 mg/dL (0.72-1.25); POTASSIUM 3.7 mmol/L (3.5-5.1)
[2021-08-24] MEDS: CARVEDILOL 12.5 MG TAB PO SCH ×2 (08:00→17:43)
[2021-08-24 08:23] LABS: CREATINE KINASE MB 11.8 ng/mL (0-5.0)
[2021-08-24 08:35] LABS: FERRITIN 908.66 ng/mL (21.81-274.66)
[2021-08-24] MEDS ORDERED: CEFTRIAXONE 2 GM in SODIUM CHLORIDE 0.9% 100 ML IV SCH (09:00)
[2021-08-24] MEDS ORDERED: ENOXAPARIN 30 MG/0.3 ML SYR SC SCH (09:00)
[2021-08-24] MEDS: CLOPIDOGREL BISULFATE 75 MG TAB PO SCH (09:51)
[2021-08-24] MEDS: ASPIRIN 81 MG CHEW TAB PO SCH (09:51)
[2021-08-24] MEDS: MONTELUKAST SODIUM 10 MG TAB PO SCH (09:51)
[2021-08-24] MEDS: ZINC SULFATE 50 MG CAP PO SCH (09:51)
[2021-08-24] MEDS: ASCORBIC ACID 500 MG TAB PO SCH ×2 (09:51→17:43)
[2021-08-24] MEDS: DEXAMETHASONE SOD PHOS 10 MG/1 ML VIAL IV SCH (09:52)
[2021-08-24] MEDS: HYDRALAZINE HCL 25 MG TAB PO SCH ×3 (09:52→21:00)
[2021-08-24] MEDS: CEFTRIAXONE 2 GM in SODIUM CHLORIDE 0.9% 100 ML IV SCH (09:52)
[2021-08-24] MEDS: PANTOPRAZOLE SOD 40 MG TABEC PO SCH (09:53)
[2021-08-24] MEDS ORDERED: REMDESIVIR 100MG 200 MG in SODIUM CHLORIDE 0.9% 100 ML IV ONE ×2 (10:00→17:00)
[2021-08-24] MEDS ORDERED: HEPARIN SOD (PORCINE) 1000 UNIT/ML SDV IV PRN (11:00)
[2021-08-24] MEDS ORDERED: SODIUM CHLORIDE 0.9% 1000ML 2,000 ML IV PRN (11:00)
[2021-08-24] MEDS: IPRATROPIUM BROMIDE INHALER 12.9 GM INH INH SCH ×3 (11:05→18:10)
[2021-08-24] MEDS: ALBUTEROL SULFATE HFA 8GM INHALATION AEROSOL INH PRN ×2 (11:10→14:15)
[2021-08-24] MEDS: EPOETIN ALFA-EPBX 10,000 UNIT/ML VIAL SC SCH (17:43)
[2021-08-24] MEDS: ATORVASTATIN 40 MG TAB PO SCH (20:50)
[2021-08-24] MEDS: TAMSULOSIN HCL 0.4 MG CAP PO SCH (20:50)
[2021-08-25] VITALS (9 sets, daily range): BP systolic 104–138; BP diastolic 53–90
[2021-08-25] MEDS: IPRATROPIUM BROMIDE INHALER 12.9 GM INH INH SCH ×4 (01:00→20:30)
[2021-08-25 05:05] LABS: HEMATOCRIT 22.1 % (38.2-49.6); LYMPHOCYTES # (AUTO) 0.5 (1.0-3.2); LYMPHOCYTES % 5.5 % (18.0-39.1); MEAN CORPUSCULAR HEMOGLOBIN 30.3 pg (28-32); MEAN CORPUSCULAR HGB CONC 30.3 g/dL (31-35); MONOCYTES # (AUTO) 0.4 (0.2-0.8); MONOCYTES % 5.3 % (4.4-11.3); NEUTROPHILS # (AUTO) 7.2 (2.1-6.9); NEUTROPHILS % 88.6 % (38.7-80.0); PLATELET COUNT 222 x10e3/uL (140-360); RED BLOOD COUNT 2.21 x10e6/uL (4.3-5.7); RED CELL DISTRIBUTION WIDTH 14.6 % (11.7-14.4)
[2021-08-25 05:08] LABS: HEMOGLOBIN 6.7 g/dL (14.0-18.0)
[2021-08-25] MEDS: ALBUTEROL SULFATE HFA 8GM INHALATION AEROSOL INH PRN ×3 (06:55→19:11)
[2021-08-25] MEDS: PANTOPRAZOLE SOD 40 MG TABEC PO SCH (07:30)
[2021-08-25 07:54] LABS: ANION GAP 14.7 mmol/L (8-16); CREATININE, SERUM 3.88 mg/dL (0.72-1.25); POTASSIUM 3.7 mmol/L (3.5-5.1)
[2021-08-25 07:55] LABS: CALCIUM 6.9 mg/dL (8.4-10.2)
[2021-08-25] MEDS ORDERED: CALCIUM GLUC 1 G/50 ML NACL 50 ML IV ONE (08:00)
[2021-08-25 08:13] LABS: ALBUMIN/GLOBULIN RATIO 0.8 (0.8-2.0)
[2021-08-25] MEDS: CEFTRIAXONE 2 GM in SODIUM CHLORIDE 0.9% 100 ML IV SCH (08:48)
[2021-08-25] MEDS: CARVEDILOL 12.5 MG TAB PO SCH ×2 (08:48→17:00)
[2021-08-25] MEDS: DEXAMETHASONE SOD PHOS 10 MG/1 ML VIAL IV SCH (08:48)
[2021-08-25] MEDS: HYDRALAZINE HCL 25 MG TAB PO SCH ×3 (08:49→21:00)
[2021-08-25] MEDS: CLOPIDOGREL BISULFATE 75 MG TAB PO SCH (08:49)
[2021-08-25] MEDS: ASPIRIN 81 MG CHEW TAB PO SCH (08:49)
[2021-08-25] MEDS: ASCORBIC ACID 500 MG TAB PO SCH ×2 (08:49→17:51)
[2021-08-25] MEDS: ZINC SULFATE 50 MG CAP PO SCH (08:49)
[2021-08-25] MEDS: MONTELUKAST SODIUM 10 MG TAB PO SCH (08:57)
[2021-08-25] MEDS ORDERED: SODIUM CHLORIDE 0.9% 1000ML 2,000 ML IV PRN (12:00)
[2021-08-25] MEDS: EPOETIN ALFA-EPBX 10,000 UNIT/ML VIAL SC SCH (17:51)
[2021-08-25] MEDS: REMDESIVIR 100MG 100 MG in SODIUM CHLORIDE 0.9% 100 ML IV SCH (17:54)
[2021-08-25] MEDS: AZITHROMYCIN 250 MG TAB PO SCH (21:18)
[2021-08-25] MEDS: TAMSULOSIN HCL 0.4 MG CAP PO SCH (21:18)
[2021-08-25] MEDS: ATORVASTATIN 40 MG TAB PO SCH (21:18)
[2021-08-26] VITALS: BP 118/66
[2021-08-26] MEDS: IPRATROPIUM BROMIDE INHALER 12.9 GM INH INH SCH ×4 (01:11→19:41)
[2021-08-26] MEDS: ALBUTEROL SULFATE HFA 8GM INHALATION AEROSOL INH PRN ×4 (01:11→19:41)
[2021-08-26 06:08] LABS: BASOPHILS % 0.1 % (0.0-1.0); HEMATOCRIT 25.2 % (38.2-49.6); LYMPHOCYTES # (AUTO) 0.8 (1.0-3.2); LYMPHOCYTES % 8.4 % (18.0-39.1); MEAN CORPUSCULAR HEMOGLOBIN 30.2 pg (28-32); MEAN CORPUSCULAR HGB CONC 31.7 g/dL (31-35); MEAN CORPUSCULAR VOLUME 95.1 fL (81-99); MONOCYTES # (AUTO) 0.7 (0.2-0.8); MONOCYTES % 7.5 % (4.4-11.3); NEUTROPHILS % 83.2 % (38.7-80.0); PLATELET COUNT 201 x10e3/uL (140-360); RED BLOOD COUNT 2.65 x10e6/uL (4.3-5.7); RED CELL DISTRIBUTION WIDTH 16.1 % (11.7-14.4)
[2021-08-26 06:50] LABS: ALBUMIN/GLOBULIN RATIO 0.8 (0.8-2.0); ANION GAP 15.7 mmol/L (8-16); CALCIUM 7.2 mg/dL (8.4-10.2); CREATININE, SERUM 3.59 mg/dL (0.72-1.25); POTASSIUM 3.7 mmol/L (3.5-5.1)
[2021-08-26 07:56] VITALS: BP 154/88
[2021-08-26] MEDS: CEFTRIAXONE 2 GM in SODIUM CHLORIDE 0.9% 100 ML IV SCH (09:43)
[2021-08-26] MEDS: PANTOPRAZOLE SOD 40 MG TABEC PO SCH (09:43)
[2021-08-26] MEDS: DEXAMETHASONE SOD PHOS 10 MG/1 ML VIAL IV SCH (09:43)
[2021-08-26] MEDS: CARVEDILOL 12.5 MG TAB PO SCH ×2 (09:43→19:19)
[2021-08-26] MEDS: ONDANSETRON HCL INJ 2MG/ML 2ML 2 MG/ML VIAL IV PRN (09:44)
[2021-08-26] MEDS: ASCORBIC ACID 500 MG TAB PO SCH ×2 (09:44→19:19)
[2021-08-26] MEDS: ZINC SULFATE 50 MG CAP PO SCH (09:44)
[2021-08-26] MEDS: MONTELUKAST SODIUM 10 MG TAB PO SCH (09:44)
[2021-08-26] MEDS: CLOPIDOGREL BISULFATE 75 MG TAB PO SCH (09:44)
[2021-08-26] MEDS: ASPIRIN 81 MG CHEW TAB PO SCH (09:44)
[2021-08-26] MEDS: HYDRALAZINE HCL 25 MG TAB PO SCH ×3 (09:44→20:23)
[2021-08-26 12:01] VITALS: BP 143/93
[2021-08-26 16:48] VITALS: BP 167/92
[2021-08-26] MEDS: REMDESIVIR 100MG 100 MG in SODIUM CHLORIDE 0.9% 100 ML IV SCH (19:18)
[2021-08-26 20:00] VITALS: BP 127/66
[2021-08-26] MEDS: ATORVASTATIN 40 MG TAB PO SCH (20:23)
[2021-08-26] MEDS: TAMSULOSIN HCL 0.4 MG CAP PO SCH (20:23)
[2021-08-26] MEDS: AZITHROMYCIN 250 MG TAB PO SCH (20:24)
[2021-08-26 21:10] VITALS: BP 127/66
[2021-08-27] VITALS (9 sets, daily range): BP systolic 125–160; BP diastolic 68–91
[2021-08-27] MEDS: IPRATROPIUM BROMIDE INHALER 12.9 GM INH INH SCH ×4 (01:48→21:46)
[2021-08-27] MEDS: ALBUTEROL SULFATE HFA 8GM INHALATION AEROSOL INH PRN ×3 (01:48→13:40)
[2021-08-27 05:26] LABS: BASOPHILS % 0.2 % (0.0-1.0); HEMATOCRIT 26.2 % (38.2-49.6); HEMOGLOBIN 8.1 g/dL (14.0-18.0); LYMPHOCYTES # (AUTO) 0.7 (1.0-3.2); LYMPHOCYTES % 6.3 % (18.0-39.1); MEAN CORPUSCULAR HEMOGLOBIN 29.9 pg (28-32); MEAN CORPUSCULAR HGB CONC 30.9 g/dL (31-35); MEAN CORPUSCULAR VOLUME 96.7 fL (81-99); MONOCYTES # (AUTO) 0.7 (0.2-0.8); MONOCYTES % 6.1 % (4.4-11.3); NEUTROPHILS # (AUTO) 9.6 (2.1-6.9); NEUTROPHILS % 85.5 % (38.7-80.0); PLATELET COUNT 209 x10e3/uL (140-360); RED BLOOD COUNT 2.71 x10e6/uL (4.3-5.7); RED CELL DISTRIBUTION WIDTH 15.8 % (11.7-14.4)
[2021-08-27 06:06] LABS: ALBUMIN 2.1 g/dL (3.5-5.0); ALBUMIN/GLOBULIN RATIO 0.9 (0.8-2.0); CREATININE, SERUM 5.96 mg/dL (0.72-1.25)
[2021-08-27 06:23] LABS: CALCIUM 6.5 mg/dL (8.4-10.2)
[2021-08-27] MEDS: MONTELUKAST SODIUM 10 MG TAB PO SCH (10:32)
[2021-08-27] MEDS: ZINC SULFATE 50 MG CAP PO SCH (10:32)
[2021-08-27] MEDS: CLOPIDOGREL BISULFATE 75 MG TAB PO SCH (10:32)
[2021-08-27] MEDS: ASCORBIC ACID 500 MG TAB PO SCH ×2 (10:32→17:35)
[2021-08-27] MEDS: CEFTRIAXONE 2 GM in SODIUM CHLORIDE 0.9% 100 ML IV SCH (10:32)
[2021-08-27] MEDS: OYST-CAL-D 500MG TABLET PO SCH (10:32)
[2021-08-27] MEDS: HYDRALAZINE HCL 25 MG TAB PO SCH ×3 (10:32→21:45)
[2021-08-27] MEDS: ASPIRIN 81 MG CHEW TAB PO SCH (10:32)
[2021-08-27] MEDS: CARVEDILOL 12.5 MG TAB PO SCH ×2 (10:32→17:35)
[2021-08-27] MEDS: DEXAMETHASONE SOD PHOS 10 MG/1 ML VIAL IV SCH (10:32)
[2021-08-27] MEDS: PANTOPRAZOLE SOD 40 MG TABEC PO SCH (10:36)
[2021-08-27] MEDS ORDERED: GUAIFENESIN/CODEINE 5 ML LIQD PO PRN (11:30)
[2021-08-27] MEDS: REMDESIVIR 100MG 100 MG in SODIUM CHLORIDE 0.9% 100 ML IV SCH (17:34)
[2021-08-27] MEDS: ATORVASTATIN 40 MG TAB PO SCH (21:45)
[2021-08-27] MEDS: TAMSULOSIN HCL 0.4 MG CAP PO SCH (21:45)
[2021-08-28] MEDS: IPRATROPIUM BROMIDE INHALER 12.9 GM INH INH SCH ×4 (01:02→19:44)
[2021-08-28 04:00] VITALS: BP 149/76
[2021-08-28 05:49] LABS: BASOPHILS % 0.2 % (0.0-1.0); HEMATOCRIT 26.7 % (38.2-49.6); HEMOGLOBIN 8.5 g/dL (14.0-18.0); LYMPHOCYTES # (AUTO) 0.6 (1.0-3.2); LYMPHOCYTES % 4.8 % (18.0-39.1); MEAN CORPUSCULAR HEMOGLOBIN 29.8 pg (28-32); MEAN CORPUSCULAR HGB CONC 31.8 g/dL (31-35); MEAN CORPUSCULAR VOLUME 93.7 fL (81-99); MONOCYTES # (AUTO) 0.7 (0.2-0.8); MONOCYTES % 5.6 % (4.4-11.3); NEUTROPHILS % 86.9 % (38.7-80.0); PLATELET COUNT 224 x10e3/uL (140-360); RED BLOOD COUNT 2.85 x10e6/uL (4.3-5.7); RED CELL DISTRIBUTION WIDTH 15.6 % (11.7-14.4)
[2021-08-28 06:03] LABS: ALBUMIN 2.2 g/dL (3.5-5.0); ALBUMIN/GLOBULIN RATIO 0.9 (0.8-2.0); ANION GAP 20.3 mmol/L (8-16); CALCIUM 7.1 mg/dL (8.4-10.2); CREATININE, SERUM 7.6 mg/dL (0.72-1.25); POTASSIUM 4.3 mmol/L (3.5-5.1)
[2021-08-28] MEDS: ALBUTEROL SULFATE HFA 8GM INHALATION AEROSOL INH PRN ×2 (07:15→14:12)
[2021-08-28] MEDS: CARVEDILOL 12.5 MG TAB PO SCH ×2 (08:59→18:43)
[2021-08-28] MEDS: MONTELUKAST SODIUM 10 MG TAB PO SCH (08:59)
[2021-08-28] MEDS: ASCORBIC ACID 500 MG TAB PO SCH ×2 (08:59→18:43)
[2021-08-28] MEDS: CLOPIDOGREL BISULFATE 75 MG TAB PO SCH (08:59)
[2021-08-28] MEDS: DEXAMETHASONE SOD PHOS 10 MG/1 ML VIAL IV SCH (08:59)
[2021-08-28] MEDS: HYDRALAZINE HCL 25 MG TAB PO SCH ×3 (08:59→21:00)
[2021-08-28] MEDS: ZINC SULFATE 50 MG CAP PO SCH (08:59)
[2021-08-28] MEDS: ASPIRIN 81 MG CHEW TAB PO SCH (08:59)
[2021-08-28] MEDS: OYST-CAL-D 500MG TABLET PO SCH (08:59)
[2021-08-28 09:32] VITALS: BP 158/78
[2021-08-28] MEDS ORDERED: DIPHENHYDRAMINE HCL 25 MG CAP PO ONE (15:45)
[2021-08-28] MEDS: EPOETIN ALFA-EPBX 10,000 UNIT/ML VIAL SC SCH (18:43)
[2021-08-28 20:00] VITALS: BP 115/69
[2021-08-28 21:00] VITALS: BP 115/69
[2021-08-28] MEDS: ATORVASTATIN 40 MG TAB PO SCH (21:33)
[2021-08-28] MEDS: TAMSULOSIN HCL 0.4 MG CAP PO SCH (21:33)
[2021-08-29] VITALS (8 sets, daily range): BP systolic 102–124; BP diastolic 63–74
[2021-08-29] MEDS: IPRATROPIUM BROMIDE INHALER 12.9 GM INH INH SCH ×4 (01:15→22:25)
[2021-08-29 05:14] LABS: INR 1.01
[2021-08-29] MEDS: HYDRALAZINE HCL 25 MG TAB PO SCH ×3 (08:44→21:01)
[2021-08-29] MEDS: BARICITINIB 2 MG TABLET PO SCH (08:44)
[2021-08-29] MEDS: ASPIRIN 81 MG CHEW TAB PO SCH (08:44)
[2021-08-29] MEDS: ZINC SULFATE 50 MG CAP PO SCH (08:44)
[2021-08-29] MEDS: MONTELUKAST SODIUM 10 MG TAB PO SCH (08:44)
[2021-08-29] MEDS: CARVEDILOL 12.5 MG TAB PO SCH ×2 (08:44→17:00)
[2021-08-29] MEDS: ASCORBIC ACID 500 MG TAB PO SCH ×2 (08:44→17:00)
[2021-08-29] MEDS: CLOPIDOGREL BISULFATE 75 MG TAB PO SCH (08:44)
[2021-08-29] MEDS: OYST-CAL-D 500MG TABLET PO SCH (08:44)
[2021-08-29] MEDS: DEXAMETHASONE SOD PHOS 10 MG/1 ML VIAL IV SCH (08:45)
[2021-08-29 09:04] LABS: BASOPHILS % 0.1 % (0.0-1.0); HEMATOCRIT 29.1 % (38.2-49.6); HEMOGLOBIN 9.1 g/dL (14.0-18.0); LYMPHOCYTES # (AUTO) 0.6 (1.0-3.2); LYMPHOCYTES % 4.6 % (18.0-39.1); MEAN CORPUSCULAR HGB CONC 31.3 g/dL (31-35); MONOCYTES # (AUTO) 0.8 (0.2-0.8); NEUTROPHILS # (AUTO) 10.3 (2.1-6.9); NEUTROPHILS % 86.3 % (38.7-80.0); PLATELET COUNT 278 x10e3/uL (140-360); RED BLOOD COUNT 3.03 x10e6/uL (4.3-5.7); RED CELL DISTRIBUTION WIDTH 16.1 % (11.7-14.4)
[2021-08-29 09:18] LABS: ALBUMIN 2.2 g/dL (3.5-5.0); ALBUMIN/GLOBULIN RATIO 0.9 (0.8-2.0); ANION GAP 16.7 mmol/L (8-16); CREATININE, SERUM 5.84 mg/dL (0.72-1.25); POTASSIUM 3.7 mmol/L (3.5-5.1)
[2021-08-29] MEDS: TAMSULOSIN HCL 0.4 MG CAP PO SCH (21:01)
[2021-08-29] MEDS: ATORVASTATIN 40 MG TAB PO SCH (21:01)
[2021-08-29] MEDS ORDERED: BENZONATATE 100 MG CAP PO PRN (23:30)
[2021-08-29] MEDS: DOCUSATE SODIUM 100 MG CAP PO SCH (23:33)
[2021-08-30] VITALS (7 sets, daily range): BP systolic 108–132; BP diastolic 56–85
[2021-08-30] MEDS: IPRATROPIUM BROMIDE INHALER 12.9 GM INH INH SCH ×3 (00:08→12:55)
[2021-08-30 06:39] LABS: BASOPHILS % 0.2 % (0.0-1.0); EOSINOPHILS % 0.2 % (0.0-6.0); HEMATOCRIT 29.2 % (38.2-49.6); LYMPHOCYTES # (AUTO) 1.8 (1.0-3.2); LYMPHOCYTES % 11.3 % (18.0-39.1); MEAN CORPUSCULAR HGB CONC 30.8 g/dL (31-35); MEAN CORPUSCULAR VOLUME 97.3 fL (81-99); MONOCYTES # (AUTO) 1.7 (0.2-0.8); MONOCYTES % 10.3 % (4.4-11.3); NEUTROPHILS # (AUTO) 12.2 (2.1-6.9); NEUTROPHILS % 75.8 % (38.7-80.0); PLATELET COUNT 329 x10e3/uL (140-360); RED CELL DISTRIBUTION WIDTH 16.8 % (11.7-14.4)
[2021-08-30 07:07] LABS: ALBUMIN 2.2 g/dL (3.5-5.0); ANION GAP 17.8 mmol/L (8-16); CALCIUM 7.1 mg/dL (8.4-10.2); CREATININE, SERUM 7.13 mg/dL (0.72-1.25); POTASSIUM 4.8 mmol/L (3.5-5.1)
[2021-08-30] MEDS: DOCUSATE SODIUM 100 MG CAP PO SCH (08:17)
[2021-08-30] MEDS: OYST-CAL-D 500MG TABLET PO SCH (08:17)
[2021-08-30] MEDS: ASCORBIC ACID 500 MG TAB PO SCH ×2 (08:17→17:21)
[2021-08-30] MEDS: CLOPIDOGREL BISULFATE 75 MG TAB PO SCH (08:17)
[2021-08-30] MEDS: ASPIRIN 81 MG CHEW TAB PO SCH (08:17)
[2021-08-30] MEDS: BARICITINIB 2 MG TABLET PO SCH (08:17)
[2021-08-30] MEDS: ZINC SULFATE 50 MG CAP PO SCH (08:17)
[2021-08-30] MEDS: MONTELUKAST SODIUM 10 MG TAB PO SCH (08:17)
[2021-08-30] MEDS: HYDRALAZINE HCL 25 MG TAB PO SCH ×2 (08:18→15:00)
[2021-08-30] MEDS: CARVEDILOL 12.5 MG TAB PO SCH ×2 (08:18→17:27)
[2021-08-30] MEDS: EPOETIN ALFA-EPBX 10,000 UNIT/ML VIAL SC SCH (17:21)
[2021-08-30] MEDS ORDERED: Calcium Carbonate PO (18:27)
[2021-08-30] MEDS ORDERED: COLACE100 MG PO (18:27)
[2021-08-30] MEDS ORDERED: Benzonatate PO (18:27)
[2021-08-30] MEDS ORDERED: PANTOPRAZOLE SO40 MG PO (18:29)
== END 2021-08-30 21:08 | disposition home or self-care (01) | DRG 177 ==
LOC: ER 20:17 → ERHOLD 22:04 → IMCU 08-24 → MED/SURG2 08-29 12:44
PROVIDERS: ADMIT Internal Medicine; ATTEND Internal Medicine
PROC: 8E0ZXY6 Isolation (ICD-10-PCS; principal; 2021-08-23)
PROC: 5A09357 Assistance with Respiratory Ventilation, Less than 24 Consecutive Hours, Continuous Positive Airway Pressure (ICD-10-PCS; 2021-08-23)
PROC: 30233N1 Transfusion of Nonautologous Red Blood Cells into Peripheral Vein, Percutaneous Approach (ICD-10-PCS; 2021-08-24)
PROC: XW033E5 Introduction of Remdesivir Anti-infective into Peripheral Vein, Percutaneous Approach, New Technology Group 5 (ICD-10-PCS; 2021-08-24)
PROC: 5A1D70Z Performance of Urinary Filtration, Intermittent, Less than 6 Hours Per Day (ICD-10-PCS; 2021-08-24)
DX: U07.1 COVID-19 (principal); J12.82 Pneumonia due to coronavirus disease 2019; J96.01 Acute respiratory failure with hypoxia; N18.6 End stage renal disease; J15.9 Unspecified bacterial pneumonia; I50.33 Acute on chronic diastolic (congestive) heart failure; I13.2 Hypertensive heart and chronic kidney disease with heart failure and with stage 5 chronic kidney disease, or end stage renal disease; D62 Acute posthemorrhagic anemia; N02.2 Recurrent and persistent hematuria with diffuse membranous glomerulonephritis; K92.1 Melena; E78.5 Hyperlipidemia, unspecified; Z99.2 Dependence on renal dialysis; J44.9 Chronic obstructive pulmonary disease, unspecified; D64.9 Anemia, unspecified; Z86.11 Personal history of tuberculosis; I25.10 Atherosclerotic heart disease of native coronary artery without angina pectoris; Z95.5 Presence of coronary angioplasty implant and graft; J45.40 Moderate persistent asthma, uncomplicated; E83.51 Hypocalcemia; R19.7 Diarrhea, unspecified; E88.09 Other disorders of plasma-protein metabolism, not elsewhere classified; E87.6 Hypokalemia
CPT/HCPCS: 36415; 71045; 80053; 82270; 82550; 82553; 82728; 82948; 83615; 83880; 84100; 84484; 85025; 85610; 86140; 86705; 86706; 86850; 86900; 86920; 87040; 87340; 93005; 93306; 93970; 94660; 94664; 94799; 97139; 99284; J0248; J0456; J0696; J1100; J1644; J2405; J7030; J7050; P9016; U0002

== ENCOUNTER 2021-08-31 13:49 | Inpatient (IN) | payer MEDICARE ==
[~2021-08-31] VITALS: Ht 170.2 cm; Wt 72.6 kg
[~2021-08-31 13:49] MED LIST changes: +Benzonatate PO; +COLACE100 MG PO; +Calcium Carbonate PO
[2021-08-31] MEDS ORDERED: SODIUM CHLORIDE 0.9% 1000ML 1,000 ML IV STA (14:02)
[2021-08-31] MEDS ORDERED: SODIUM CHLORIDE 0.9% 500ML 500 ML IV ONE (14:15)
[2021-08-31 14:55] LABS: BASOPHILS % 0.1 % (0.0-1.0); EOSINOPHILS # (AUTO) 0.1 (0.0-0.4); EOSINOPHILS % 0.4 % (0.0-6.0); LYMPHOCYTES # (AUTO) 2.7 (1.0-3.2); LYMPHOCYTES % 16.9 % (18.0-39.1); MEAN CORPUSCULAR HEMOGLOBIN 30.1 pg (28-32); MEAN CORPUSCULAR HGB CONC 29.4 g/dL (31-35); MEAN CORPUSCULAR VOLUME 102.3 fL (81-99); MONOCYTES # (AUTO) 1.9 (0.2-0.8); MONOCYTES % 12.1 % (4.4-11.3); NEUTROPHILS # (AUTO) 10.6 (2.1-6.9); NEUTROPHILS % 67.7 % (38.7-80.0); PLATELET COUNT 362 x10e3/uL (140-360); RED BLOOD COUNT 1.73 x10e6/uL (4.3-5.7); RED CELL DISTRIBUTION WIDTH 17.8 % (11.7-14.4)
[2021-08-31 14:57] LABS: HEMATOCRIT 17.7 % (38.2-49.6); HEMOGLOBIN 5.2 g/dL (14.0-18.0)
[2021-08-31 15:00] LABS: INR 1.01
[2021-08-31 15:01] LABS: PARTIAL THROMBOPLASTIN TIME 26.3 seconds (23.8-35.5)
[2021-08-31 15:11] LABS: ALBUMIN/GLOBULIN RATIO 1.1 (0.8-2.0); ANION GAP 18.8 mmol/L (8-16); CREATININE, SERUM 6.39 mg/dL (0.72-1.25); POTASSIUM 4.8 mmol/L (3.5-5.1)
[2021-08-31 15:12] LABS: CALCIUM 6.7 mg/dL (8.4-10.2)
[2021-08-31] MEDS ORDERED: SODIUM CHLORIDE 0.9% 250ML 250 ML IV ONE (15:15)
[2021-08-31 15:17] LABS: CREATINE KINASE MB 7.9 ng/mL (0-5.0)
[2021-08-31 15:20] LABS: B-TYPE NATRIURETIC PEPTIDE2 104.7 pg/mL (0-100)
[2021-08-31] MEDS ORDERED: DEXAMETHASONE SOD PHOS 10 MG/1 ML VIAL IV ONE (15:30)
[2021-08-31] MEDS ORDERED: ALBUTEROL/IPRATROPIUM 3 ML NEB NEB ONE (15:30)
[2021-08-31] MEDS ORDERED: SODIUM CHLORIDE FLUSH 10 ML SYR INJ PRN (15:45)
[2021-08-31 15:49] LABS: ANISOCYTOSIS MODE; HYPOCHROMASIA SLIG; MICROCYTOSIS SLIG; PLATELET ESTIMATE ADEQUATE; PLATELET MORPHOLOGY COMMENT FEW LARGE; POIKILOCYTOSIS MODERATE; POLYCHROMASIA FEW
[2021-08-31 15:50] LABS: RBC MORPHOLOGY COMMENT ABNORMAL
[2021-08-31] MEDS: CEFTRIAXONE 1 GM in SODIUM CHLORIDE 0.9% 50ML 50 ML IV SCH (16:16)
[2021-08-31 17:36] LABS: ABG HCO3 25 mmol/L (22-26); ABG PCO2 37 mmHg (35-45); ABG PH 7.45 (7.35-7.45); ABG PO2 190 mmHg (80-105); ABG TCO2 26
[2021-08-31] MEDS: ALBUTEROL SULF 0.083% NEB SOLN 3 ML NEB NEB PRN (18:30)
[2021-08-31] MEDS: BUDESONIDE/FORMOTEROL 160/4.5MCG INHALER INH SCH (20:00)
[2021-08-31] MEDS ORDERED: SODIUM CHLORIDE 0.9% 250ML 250 ML ONE (21:29)
[2021-08-31 23:14] LABS: CREATINE KINASE MB 9.4 ng/mL (0-5.0)
[2021-09-01 04:20] LABS: BASOPHILS % 0.1 % (0.0-1.0); LYMPHOCYTES # (AUTO) 0.7 (1.0-3.2); LYMPHOCYTES % 5.5 % (18.0-39.1); MEAN CORPUSCULAR HEMOGLOBIN 29.9 pg (28-32); MEAN CORPUSCULAR HGB CONC 31.4 g/dL (31-35); MONOCYTES # (AUTO) 0.5 (0.2-0.8); MONOCYTES % 3.9 % (4.4-11.3); NEUTROPHILS # (AUTO) 11.7 (2.1-6.9); NEUTROPHILS % 86.9 % (38.7-80.0); PLATELET COUNT 232 x10e3/uL (140-360); RED BLOOD COUNT 2.21 x10e6/uL (4.3-5.7); RED CELL DISTRIBUTION WIDTH 17.1 % (11.7-14.4)
[2021-09-01 04:29] LABS: HEMOGLOBIN 6.6 g/dL (14.0-18.0)
[2021-09-01 04:38] LABS: ALBUMIN 2.1 g/dL (3.5-5.0); ALBUMIN/GLOBULIN RATIO 1.2 (0.8-2.0); ANION GAP 20.7 mmol/L (8-16); CREATININE, SERUM 7.03 mg/dL (0.72-1.25); MAGNESIUM 1.8 MG/DL (1.3-2.1); POTASSIUM 5.7 mmol/L (3.5-5.1)
[2021-09-01 04:40] LABS: CALCIUM 6.8 mg/dL (8.4-10.2)
[2021-09-01 04:45] LABS: CREATINE KINASE MB 5.9 ng/mL (0-5.0)
[2021-09-01] MEDS ORDERED: SODIUM CHLORIDE 0.9% 250ML 250 ML IV ONE (05:30)
[2021-09-01] MEDS: BUDESONIDE/FORMOTEROL 160/4.5MCG INHALER INH SCH ×2 (07:00→18:05)
[2021-09-01] MEDS ORDERED: SODIUM CHLORIDE 0.9% 1000ML 2,000 ML ONE (07:54)
[2021-09-01] MEDS ORDERED: CLOPIDOGREL BISULFATE 75 MG TAB PO SCH (09:00)
[2021-09-01] MEDS: ALBUTEROL SULF 0.083% NEB SOLN 3 ML NEB NEB PRN ×4 (13:00→22:15)
[2021-09-01 13:56] LABS: CREATINE KINASE MB 8.9 ng/mL (0-5.0)
[2021-09-01] MEDS: CEFTRIAXONE 1 GM in SODIUM CHLORIDE 0.9% 50ML 50 ML IV SCH (15:07)
[2021-09-01] MEDS: GUAIFENESIN/CODEINE 5 ML LIQD PO PRN (15:47)
[2021-09-01 15:59] LABS: BASOPHILS % 0.1 % (0.0-1.0); HEMATOCRIT 24.7 % (38.2-49.6); HEMOGLOBIN 8.3 g/dL (14.0-18.0); LYMPHOCYTES % 7.6 % (18.0-39.1); MEAN CORPUSCULAR HEMOGLOBIN 30.7 pg (28-32); MEAN CORPUSCULAR HGB CONC 33.6 g/dL (31-35); MEAN CORPUSCULAR VOLUME 91.5 fL (81-99); MONOCYTES # (AUTO) 1.4 (0.2-0.8); MONOCYTES % 10.6 % (4.4-11.3); NEUTROPHILS # (AUTO) 10.8 (2.1-6.9); NEUTROPHILS % 79.8 % (38.7-80.0); PLATELET COUNT 163 x10e3/uL (140-360); RED CELL DISTRIBUTION WIDTH 16.4 % (11.7-14.4)
[2021-09-01] MEDS ORDERED: CALCIUM CHLORIDE 13.6 MEQ in SODIUM CHLORIDE 0.9% 100 ML 100 ML IV ONE (16:00)
[2021-09-01 16:29] LABS: CREATINE KINASE MB 7.8 ng/mL (0-5.0)
[2021-09-01] MEDS: CALCIUM CARBONATE 500 MG CHEWABLE TABS PO SCH (21:00)
[2021-09-01 22:00] VITALS: BP 91/70
[2021-09-01 22:12] VITALS: BP 91/70
[2021-09-02] VITALS (15 sets, daily range): BP systolic 85–163; BP diastolic 35–97
[2021-09-02 01:36] LABS: % IRON SATURATION 70 % (15-50); IRON 151 ug/dL (65-175); TOTAL IRON BINDING CAPACITY 216 ug/dL (261-478); TRANSFERRIN 154 mg/dL (174-364)
[2021-09-02] MEDS: ONDANSETRON HCL INJ 2MG/ML 2ML 2 MG/ML VIAL IV PRN ×2 (01:42→19:44)
[2021-09-02] MEDS: ALBUTEROL SULF 0.083% NEB SOLN 3 ML NEB NEB PRN ×5 (02:30→19:48)
[2021-09-02] MEDS ORDERED: SODIUM CHLORIDE 0.9% 250ML 250 ML ONE ×3 (04:03→16:31)
[2021-09-02] MEDS: BUDESONIDE/FORMOTEROL 160/4.5MCG INHALER INH SCH ×2 (07:00→19:48)
[2021-09-02 08:19] LABS: ANION GAP 16.1 mmol/L (8-16); CREATININE, SERUM 4.81 mg/dL (0.72-1.25); POTASSIUM 5.1 mmol/L (3.5-5.1)
[2021-09-02 08:26] LABS: CALCIUM 6.9 mg/dL (8.4-10.2)
[2021-09-02 08:31] LABS: BASOPHILS % 0.1 % (0.0-1.0); EOSINOPHILS % 0.2 % (0.0-6.0); LYMPHOCYTES # (AUTO) 1.3 (1.0-3.2); LYMPHOCYTES % 10.5 % (18.0-39.1); MEAN CORPUSCULAR HEMOGLOBIN 31.2 pg (28-32); MEAN CORPUSCULAR HGB CONC 32.1 g/dL (31-35); MEAN CORPUSCULAR VOLUME 97.1 fL (81-99); MONOCYTES # (AUTO) 1.3 (0.2-0.8); MONOCYTES % 9.9 % (4.4-11.3); NEUTROPHILS # (AUTO) 9.8 (2.1-6.9); NEUTROPHILS % 76.9 % (38.7-80.0); PLATELET COUNT 183 x10e3/uL (140-360); RED BLOOD COUNT 1.38 x10e6/uL (4.3-5.7); RED CELL DISTRIBUTION WIDTH 18.3 % (11.7-14.4)
[2021-09-02] MEDS: CALCIUM CARBONATE 500 MG CHEWABLE TABS PO SCH ×3 (08:31→20:45)
[2021-09-02 08:40] LABS: HEMOGLOBIN 4.3 g/dL (14.0-18.0)
[2021-09-02 08:41] LABS: HEMATOCRIT 13.4 % (38.2-49.6)
[2021-09-02] MEDS: CEFTRIAXONE 1 GM in SODIUM CHLORIDE 0.9% 50ML 50 ML IV SCH (09:45)
[2021-09-02] MEDS ORDERED: SODIUM CHLORIDE 0.9% 250ML 250 ML IV ONE (10:00)
[2021-09-02] MEDS ORDERED: CALCIUM CHLORIDE 13.6 MEQ in SODIUM CHLORIDE 0.9% 100 ML 100 ML IV ONE (11:30)
[2021-09-02 14:28] LABS: INR 1.05; PROTHROMBIN TIME 14.6 seconds (11.9-14.5)
[2021-09-02] MEDS ORDERED: PHYTONADIONE 10 MG/ML AMP IV ONE (15:15)
[2021-09-02] MEDS ORDERED: LIDOCAINE HCL 2% LOCAL INJ 5 ML SDV VIAL INJ ONE (15:39)
[2021-09-02] MEDS ORDERED: PROPOFOL IV EMULSION 10 MG/ML 20 ML VIAL ONE (15:39)
[2021-09-02] MEDS ORDERED: PHYTONADIONE 10MG/ML 20 MG in SODIUM CHLORIDE 0.9% 50ML 50 ML IV ONE (16:00)
[2021-09-02] MEDS ORDERED: SODIUM CHLORIDE 0.9% 500ML 500 ML ONE (18:12)
[2021-09-02] MEDS ORDERED: SODIUM CHLORIDE 0.9% 1000ML 1,000 ML ONE (19:13)
[2021-09-02] MEDS: ALBUTEROL SULFATE HFA 8GM INHALATION AEROSOL INH PRN (19:48)
[2021-09-02] MEDS: SUCRALFATE 1 GM/10 ML SUSP PO SCH (20:45)
[2021-09-03] VITALS (13 sets, daily range): BP systolic 101–130; BP diastolic 48–84
[2021-09-03] MEDS: ALBUTEROL SULF 0.083% NEB SOLN 3 ML NEB NEB PRN (03:02)
[2021-09-03 05:35] LABS: EOSINOPHILS % 0.1 % (0.0-6.0); HEMATOCRIT 20.8 % (38.2-49.6); LYMPHOCYTES # (AUTO) 0.9 (1.0-3.2); MEAN CORPUSCULAR HEMOGLOBIN 31.2 pg (28-32); MEAN CORPUSCULAR HGB CONC 32.7 g/dL (31-35); MEAN CORPUSCULAR VOLUME 95.4 fL (81-99); MONOCYTES # (AUTO) 1.1 (0.2-0.8); NEUTROPHILS # (AUTO) 10.2 (2.1-6.9); NEUTROPHILS % 82.1 % (38.7-80.0); PLATELET COUNT 134 x10e3/uL (140-360); RED BLOOD COUNT 2.18 x10e6/uL (4.3-5.7); RED CELL DISTRIBUTION WIDTH 15.9 % (11.7-14.4)
[2021-09-03 05:56] LABS: ANION GAP 13.8 mmol/L (8-16); CREATININE, SERUM 4.22 mg/dL (0.72-1.25); HEMOGLOBIN 6.8 g/dL (14.0-18.0); POTASSIUM 4.8 mmol/L (3.5-5.1)
[2021-09-03 06:00] LABS: CALCIUM 6.6 mg/dL (8.4-10.2)
[2021-09-03] MEDS: BUDESONIDE/FORMOTEROL 160/4.5MCG INHALER INH SCH ×2 (07:50→19:00)
[2021-09-03] MEDS: SUCRALFATE 1 GM/10 ML SUSP PO SCH ×4 (09:22→20:03)
[2021-09-03] MEDS: CEFTRIAXONE 1 GM in SODIUM CHLORIDE 0.9% 50ML 50 ML IV SCH (09:22)
[2021-09-03] MEDS: CALCIUM CARBONATE 500 MG CHEWABLE TABS PO SCH ×3 (09:22→20:03)
[2021-09-03] MEDS ORDERED: SODIUM CHLORIDE 0.9% 250ML 250 ML IV ONE ×2 (12:00)
[2021-09-03] MEDS ORDERED: SODIUM CHLORIDE 0.9% 1000ML 2,000 ML IV PRN (13:00)
[2021-09-03] MEDS ORDERED: HEPARIN SOD (PORCINE) 1000 UNIT/ML SDV IV PRN (13:00)
[2021-09-03] MEDS ORDERED: SODIUM CHLORIDE 0.9% 250ML 500 ML IV PRN (13:00)
[2021-09-03] MEDS ORDERED: SODIUM CHLORIDE 0.9% 250ML 250 ML ONE (13:14)
[2021-09-03] MEDS ORDERED: CALCIUM CHLORIDE 13.6 MEQ in SODIUM CHLORIDE 0.9% 100 ML 100 ML IV ONE ×2 (14:30→16:30)
[2021-09-03] MEDS: ALBUTEROL SULFATE HFA 8GM INHALATION AEROSOL INH PRN (15:20)
[2021-09-03] MEDS: ALBUTEROL SULF 0.083% NEB SOLN 3 ML NEB NEB SCH ×2 (15:20→19:50)
[2021-09-03] MEDS ORDERED: FOLIC ACID 1 MG TAB PO ONE (18:00)
[2021-09-03] MEDS ORDERED: CYANOCOBALAMIN INJ 1,000 MCG/ML VIAL IM ONE (18:00)
[2021-09-04] VITALS (8 sets, daily range): BP systolic 109–153; BP diastolic 62–97
[2021-09-04] MEDS: ALBUTEROL SULF 0.083% NEB SOLN 3 ML NEB NEB SCH ×5 (01:20→23:30)
[2021-09-04 05:27] LABS: BASOPHILS % 0.1 % (0.0-1.0); EOSINOPHILS % 0.4 % (0.0-6.0); HEMATOCRIT 23.4 % (38.2-49.6); HEMOGLOBIN 7.5 g/dL (14.0-18.0); LYMPHOCYTES # (AUTO) 0.9 (1.0-3.2); LYMPHOCYTES % 8.7 % (18.0-39.1); MEAN CORPUSCULAR HEMOGLOBIN 30.2 pg (28-32); MEAN CORPUSCULAR HGB CONC 32.1 g/dL (31-35); MEAN CORPUSCULAR VOLUME 94.4 fL (81-99); MONOCYTES # (AUTO) 0.9 (0.2-0.8); MONOCYTES % 8.2 % (4.4-11.3); NEUTROPHILS # (AUTO) 8.6 (2.1-6.9); PLATELET COUNT 120 x10e3/uL (140-360); RED BLOOD COUNT 2.48 x10e6/uL (4.3-5.7); RED CELL DISTRIBUTION WIDTH 17.3 % (11.7-14.4)
[2021-09-04 05:53] LABS: ALBUMIN/GLOBULIN RATIO 1.1 (0.8-2.0); ANION GAP 13.9 mmol/L (8-16); CALCIUM 7.1 mg/dL (8.4-10.2); CREATININE, SERUM 5.12 mg/dL (0.72-1.25); POTASSIUM 4.9 mmol/L (3.5-5.1)
[2021-09-04] MEDS: BUDESONIDE/FORMOTEROL 160/4.5MCG INHALER INH SCH ×2 (07:28→19:00)
[2021-09-04] MEDS: SUCRALFATE 1 GM/10 ML SUSP PO SCH ×4 (07:30→20:50)
[2021-09-04] MEDS: CYANOCOBALAMIN INJ 1,000 MCG/ML VIAL IM SCH (09:48)
[2021-09-04] MEDS: FOLIC ACID 1 MG TAB PO SCH (09:48)
[2021-09-04] MEDS: CALCIUM CARBONATE 500 MG CHEWABLE TABS PO SCH ×3 (09:48→20:50)
[2021-09-04] MEDS: CEFTRIAXONE 1 GM in SODIUM CHLORIDE 0.9% 50ML 50 ML IV SCH (09:48)
[2021-09-04] MEDS ORDERED: ALBUMIN 25% 12.5GM 0.25 GM/ML BTL IV PRN (10:45)
[2021-09-04] MEDS: ALBUTEROL SULFATE HFA 8GM INHALATION AEROSOL INH PRN (15:28)
[2021-09-04] MEDS: GUAIFENESIN/CODEINE 5 ML LIQD PO PRN (15:40)
[2021-09-05 01:11] VITALS: BP 143/75
[2021-09-05 05:49] VITALS: BP 147/83
[2021-09-05] MEDS: BUDESONIDE/FORMOTEROL 160/4.5MCG INHALER INH SCH (07:00)
[2021-09-05] MEDS: ALBUTEROL SULF 0.083% NEB SOLN 3 ML NEB NEB SCH ×2 (07:00→13:00)
[2021-09-05] MEDS: CEFTRIAXONE 1 GM in SODIUM CHLORIDE 0.9% 50ML 50 ML IV SCH (08:33)
[2021-09-05] MEDS: CALCIUM CARBONATE 500 MG CHEWABLE TABS PO SCH (08:34)
[2021-09-05] MEDS: FOLIC ACID 1 MG TAB PO SCH (08:34)
[2021-09-05] MEDS: SUCRALFATE 1 GM/10 ML SUSP PO SCH ×2 (08:34→12:05)
[2021-09-05] MEDS: CYANOCOBALAMIN INJ 1,000 MCG/ML VIAL IM SCH (08:51)
[2021-09-05 11:01] LABS: BASOPHILS % 0.3 % (0.0-1.0); EOSINOPHILS # (AUTO) 0.1 (0.0-0.4); EOSINOPHILS % 0.7 % (0.0-6.0); HEMATOCRIT 25.2 % (38.2-49.6); LYMPHOCYTES # (AUTO) 0.4 (1.0-3.2); MEAN CORPUSCULAR HEMOGLOBIN 30.4 pg (28-32); MEAN CORPUSCULAR HGB CONC 31.7 g/dL (31-35); MEAN CORPUSCULAR VOLUME 95.8 fL (81-99); MONOCYTES # (AUTO) 0.9 (0.2-0.8); MONOCYTES % 8.5 % (4.4-11.3); NEUTROPHILS # (AUTO) 8.9 (2.1-6.9); NEUTROPHILS % 85.6 % (38.7-80.0); PLATELET COUNT 90 x10e3/uL (140-360); RED BLOOD COUNT 2.63 x10e6/uL (4.3-5.7); RED CELL DISTRIBUTION WIDTH 18.6 % (11.7-14.4)
[2021-09-05] MEDS ORDERED: COREG6.25 MG PO (12:19)
[2021-09-05] MEDS ORDERED: CARAFATE1 GM/10 ML PO (12:19)
[2021-09-05] MEDS ORDERED: PROTONIX40 MG PO (12:21)
[2021-09-05] MEDS ORDERED: PANTOPRAZOLE SOD 40 MG TABEC PO SCH (16:30)
[2021-09-05] MEDS ORDERED: AZITHROMYCIN 250 MG TAB PO SCH (20:00)
== END 2021-09-05 13:10 | disposition home or self-care (01) | DRG 377 ==
LOC: ER 13:59 → ERHOLD 15:43 → IMCU 09-01 18:31 → ICU 09-02 12:54 → MED/SURG2 09-03 17:08
PROVIDERS: ADMIT Internal Medicine; ATTEND Internal Medicine
PROC: 5A1D70Z Performance of Urinary Filtration, Intermittent, Less than 6 Hours Per Day (ICD-10-PCS; 2021-09-01)
PROC: 30243N1 Transfusion of Nonautologous Red Blood Cells into Central Vein, Percutaneous Approach (ICD-10-PCS; 2021-09-01)
PROC: 3E0G8GC Introduction of Other Therapeutic Substance into Upper GI, Via Natural or Artificial Opening Endoscopic (ICD-10-PCS; 2021-09-02)
PROC: 0D598ZZ Destruction of Duodenum, Via Natural or Artificial Opening Endoscopic (ICD-10-PCS; 2021-09-02)
PROC: 0W3P8ZZ Control Bleeding in Gastrointestinal Tract, Via Natural or Artificial Opening Endoscopic (ICD-10-PCS; 2021-09-02)
PROC: 0DB78ZX Excision of Stomach, Pylorus, Via Natural or Artificial Opening Endoscopic, Diagnostic (ICD-10-PCS; principal; 2021-09-02 18:00)
DX: K26.4 Chronic or unspecified duodenal ulcer with hemorrhage (principal); N18.6 End stage renal disease; R57.8 Other shock; I13.2 Hypertensive heart and chronic kidney disease with heart failure and with stage 5 chronic kidney disease, or end stage renal disease; D62 Acute posthemorrhagic anemia; I24.9 Acute ischemic heart disease, unspecified; N02 Recurrent and persistent hematuria; I50.32 Chronic diastolic (congestive) heart failure; I50.84 End stage heart failure; Z99.2 Dependence on renal dialysis; Z86.16 Personal history of COVID-19; I25.10 Atherosclerotic heart disease of native coronary artery without angina pectoris; Z95.5 Presence of coronary angioplasty implant and graft; J44.9 Chronic obstructive pulmonary disease, unspecified; J45.909 Unspecified asthma, uncomplicated; E83.51 Hypocalcemia; K29.70 Gastritis, unspecified, without bleeding; K20.90 Esophagitis, unspecified without bleeding
CPT/HCPCS: 36415; 43270; 71045; 74176; 80048; 80053; 82140; 82270; 82550; 82553; 82607; 82746; 82805; 83540; 83605; 83690; 83735; 83880; 83970; 84100; 84466; 84484; 85025; 85045; 85610; 85730; 86850; 86900; 86920; 87040; 93005; 94640; 94660; 94799; 99284; J0456; J0696; J1100; J2001; J2405; J3420; J3430; J7030; J7040; J7050; P9016; P9034; U0002

== ENCOUNTER 2021-09-28 19:16 | Observation (INO) | payer MEDICARE ==
[~2021-09-28] VITALS: Ht 165.1 cm; Wt 71.2 kg
[~2021-09-28 19:16] MED LIST changes: -BUDESONIDE-FO10.2 G1; +BUDESONIDE-FO10.2 G1 INH; +CARAFATE1 GM/10 ML PO; +COREG6.25 MG PO; +PROTONIX40 MG PO
[2021-09-28 19:49] LABS: BASOPHILS # (AUTO) 0.1 (0.0-0.1); BASOPHILS % 0.9 % (0.0-1.0); EOSINOPHILS # (AUTO) 0.1 (0.0-0.4); EOSINOPHILS % 0.9 % (0.0-6.0); HEMATOCRIT 22.4 % (38.2-49.6); LYMPHOCYTES # (AUTO) 1.6 (1.0-3.2); LYMPHOCYTES % 16.7 % (18.0-39.1); MEAN CORPUSCULAR HEMOGLOBIN 29.4 pg (28-32); MEAN CORPUSCULAR HGB CONC 31.3 g/dL (31-35); MEAN CORPUSCULAR VOLUME 94.1 fL (81-99); MONOCYTES % 10.6 % (4.4-11.3); NEUTROPHILS # (AUTO) 6.7 (2.1-6.9); NEUTROPHILS % 70.7 % (38.7-80.0); PLATELET COUNT 346 x10e3/uL (140-360); RED BLOOD COUNT 2.38 x10e6/uL (4.3-5.7); RED CELL DISTRIBUTION WIDTH 16.5 % (11.7-14.4)
[2021-09-28 20:03] LABS: ANION GAP 11.8 mmol/L (8-16); CALCIUM 7.7 mg/dL (8.4-10.2); CREATININE, SERUM 3.12 mg/dL (0.72-1.25); POTASSIUM 3.8 mmol/L (3.5-5.1)
[2021-09-28] MEDS ORDERED: SODIUM CHLORIDE FLUSH 10 ML SYR INJ PRN (21:15)
[2021-09-28] MEDS ORDERED: SODIUM CHLORIDE 0.9% 250ML 250 ML IV ONE (21:15)
[2021-09-28] MEDS ORDERED: ONDANSETRON HCL INJ 2MG/ML 2ML 2 MG/ML VIAL IV PRN (21:15)
[2021-09-28] MEDS ORDERED: DEXTROSE 50% SYRINGE 50 ML IV PRN (21:15)
[2021-09-28 21:50] VITALS: BP 166/84
[2021-09-28 22:00] VITALS: BP 160/80
[2021-09-28] MEDS ORDERED: PLAVIX75 MG PO (22:33)
[2021-09-28] MEDS ORDERED: ATORVASTATIN 40 MG TAB PO SCH (22:44)
[2021-09-28] MEDS ORDERED: BENZONATATE 100 MG CAP PO PRN (22:45)
[2021-09-28] MEDS ORDERED: HYDROCODONE/APAP 10MG-325MG TAB PO PRN (22:45)
[2021-09-28] MEDS: CARVEDILOL 3.125 MG TAB PO SCH (23:03)
[2021-09-28] MEDS: ALBUTEROL/IPRATROPIUM 3 ML NEB NEB SCH (23:26)
[2021-09-28 23:51] VITALS: BP 166/84
[2021-09-29 01:10] LABS: % IRON SATURATION 19 % (15-50); IRON 46 ug/dL (65-175); TOTAL IRON BINDING CAPACITY 244 ug/dL (261-478); TRANSFERRIN 174 mg/dL (174-364)
[2021-09-29] MEDS: ALBUTEROL/IPRATROPIUM 3 ML NEB NEB SCH ×4 (03:03→15:11)
[2021-09-29 04:00] VITALS: BP 172/89
[2021-09-29] MEDS: HYDRALAZINE HCL 25 MG TAB PO SCH ×2 (05:45→14:00)
[2021-09-29 07:13] LABS: BASOPHILS # (AUTO) 0.1 (0.0-0.1); BASOPHILS % 0.8 % (0.0-1.0); EOSINOPHILS # (AUTO) 0.1 (0.0-0.4); EOSINOPHILS % 1.3 % (0.0-6.0); LYMPHOCYTES # (AUTO) 1.3 (1.0-3.2); LYMPHOCYTES % 16.2 % (18.0-39.1); MEAN CORPUSCULAR HEMOGLOBIN 29.8 pg (28-32); MEAN CORPUSCULAR HGB CONC 31.4 g/dL (31-35); MEAN CORPUSCULAR VOLUME 94.9 fL (81-99); MONOCYTES # (AUTO) 0.9 (0.2-0.8); MONOCYTES % 11.3 % (4.4-11.3); NEUTROPHILS # (AUTO) 5.4 (2.1-6.9); PLATELET COUNT 299 x10e3/uL (140-360); RED BLOOD COUNT 2.15 x10e6/uL (4.3-5.7); RED CELL DISTRIBUTION WIDTH 16.7 % (11.7-14.4)
[2021-09-29 07:23] LABS: HEMOGLOBIN 6.4 g/dL (14.0-18.0)
[2021-09-29 07:24] LABS: HEMATOCRIT 20.4 % (38.2-49.6)
[2021-09-29] MEDS ORDERED: INSULIN REGULAR, HUMAN 100 UNIT/1 ML SQ SCH (07:30)
[2021-09-29] MEDS: SUCRALFATE 1 GM/10 ML SUSP PO SCH ×3 (07:30→16:30)
[2021-09-29 07:39] LABS: ANION GAP 10.7 mmol/L (8-16); CALCIUM 7.6 mg/dL (8.4-10.2); CREATININE, SERUM 3.51 mg/dL (0.72-1.25); POTASSIUM 3.7 mmol/L (3.5-5.1)
[2021-09-29 07:56] VITALS: BP 183/93
[2021-09-29 08:00] VITALS: BP 183/93
[2021-09-29] MEDS: PANTOPRAZOLE SODIUM 40 MG SUSPDR.PKT PO SCH ×2 (08:35→17:00)
[2021-09-29] MEDS ORDERED: MONTELUKAST SODIUM 10 MG TAB PO SCH (09:00)
[2021-09-29] MEDS ORDERED: DOCUSATE SODIUM 100 MG CAP PO SCH (09:00)
[2021-09-29] MEDS ORDERED: LORATADINE 10 MG TAB PO SCH (09:00)
[2021-09-29] MEDS ORDERED: BUDESONIDE/FORMOTEROL 160/4.5MCG INHALER INH SCH (09:00)
[2021-09-29] MEDS ORDERED: SODIUM CHLORIDE 0.9% 1000ML 2,000 ML ONE (09:22)
[2021-09-29] MEDS ORDERED: SODIUM CHLORIDE 0.9% 250ML 250 ML IV ONE (10:30)
[2021-09-29] MEDS ORDERED: ONDANSETRON HCL 4 MG ORAL DISINTEGRATING TAB PO PRN (11:30)
[2021-09-29 11:41] VITALS: BP 175/101
[2021-09-29] MEDS: CARVEDILOL 3.125 MG TAB PO SCH ×2 (14:20→17:00)
[2021-09-29 16:06] VITALS: BP 172/85
[2021-09-29] MEDS ORDERED: TAMSULOSIN HCL 0.4 MG CAP PO SCH (21:00)
== END 2021-09-29 17:10 | disposition home or self-care (01) ==
LOC: ER 19:23 → ERHOLD 21:16 → MED/SURG2 21:58
PROVIDERS: ADMIT Internal Medicine; ATTEND Internal Medicine
DX: D64.9 Anemia, unspecified (principal); J44.9 Chronic obstructive pulmonary disease, unspecified; I13.2 Hypertensive heart and chronic kidney disease with heart failure and with stage 5 chronic kidney disease, or end stage renal disease; N18.6 End stage renal disease; I50.9 Heart failure, unspecified; I25.2 Old myocardial infarction; M87.9 Osteonecrosis, unspecified; Z99.2 Dependence on renal dialysis; Z95.5 Presence of coronary angioplasty implant and graft; Z99.81 Dependence on supplemental oxygen; E11.22 Type 2 diabetes mellitus with diabetic chronic kidney disease; Z20.822 Contact with and (suspected) exposure to COVID-19
CPT/HCPCS: 36415 ×2; 36430; 80048 ×2; 82607; 82746; 82948; 83540; 84466; 85014; 85025 ×2; 85045; 86705; 86706; 86850; 86900; 86920; 87340; 87350; 90935; 94640; 94799 ×2; 99284; G0378 ×2; J7030; P9016; U0002